=== PATIENT | male | born 1950 | race Caucasian/White ===

== ENCOUNTER 2019-06-19 08:17 | Inpatient (IN) | payer MEDICARE, MEDICAID, SELFPAY ==
[2019-06-19] VITALS (9 sets, daily range): BP systolic 96–126; BP diastolic 53–75; PULSE 82–111; RESP 17–20; TEMP 37.1–39.3; O2SAT 93–96; BMI 31.1
--- NOTE | 2019-06-19 08:21 | ED_ITS ---
Entered by Kimberly Cross, acting as scribe for Fito Lew DO HPI - Weakness General: Chief complaint: Weakness Stated complaint: neuro sx yesterday/nausea Time Seen by Provider: 06/19/19 08:22 Source: patient and family Mode of arrival: EMS Limitations: no limitations History of Present Illness: HPI Narrative: 69 yo male presents with redness and tenderness to L lower leg. pt and family stated this started today , pt has had difficulty walking. pt has had abdomen distention. pt and family denies any other symptoms at this time. MD Complaint: generalized weakness and difficulty walking (edema and redness to Left lower leg) Onset (ago): day(s) (today) Duration: progressively worsening Location: generalized Severity: moderate Relieving factors: none Exacerbating factors: movement Associated symptoms: Reports nausea, vomiting and other (abdomen pain); Denies chest pain, chills, dysuria or fever(s) Review of Systems General: Reports: 10 or more systems reviewed and unremarkable except in HPI and below Const: Denies: fever, chills, body aches, change in appetite, fatigue or malaise ENMT: Denies: throat pain, ear pain, nasal discharge or nasal congestion Card: Denies: chest pain, edema, shortness of breath on exertion or shortness of breath when lying down Resp: Denies: shortness of breath, productive cough or non-productive cough GI: Reports: abdominal pain (distention), nausea and vomiting : Denies: flank pain, painful urination, urinary frequency or urinary urgency Skin/Breast: Reports: redness (L lower leg, edema warmth) PFSH ED PFSH: Medical History (Updated 06/21/19 @ 13:37 by Fito Lew DO) Anxiety Bleeding hemorrhoid Chronic migraine with aura HTN (hypertension) Hyperlipidemia Surgical History (Updated 06/19/19 @ 12:01 by Chrissy Mccormick DO) History of appendectomy History of cholecystectomy History of tonsillectomy Family History (Updated 06/19/19 @ 12:02 by Chrissy Mccormick DO) Mother Cancer breast Father CAD (coronary artery disease) Cancer Prostate cancer Social History (Updated 06/19/19 @ 12:02 by Chrissy Mccormick DO) Smoking and tobacco status: former smoker Alcohol intake: never Substance/Drug Use: never Marital status: Physical Exam Const: COMMON NORMALS: average body habitus, oriented x3 and alert GENERAL APPEARANCE: cooperative, comfortable, well kempt and well developed NUTRITIONAL APPEARANCE: obese ORIENTATION/CONSCIOUSNESS: Yes awake, Yes oriented to person and Yes oriented to place HENMT: COMMON NORMALS: normocephalic, head/scalp atraumatic, EAC's normal, TM's normal bilaterally, external nose normal, moist oral mucous membranes and oropharynx normal HEAD & SCALP: normocephalic and atraumatic NOSE: external nose normal EXTERNAL AUDITORY CANAL: EAC's normal TYMPANIC MEMBRANE: TM's normal bilaterally MOUTH: oral and palatal mucosa normal, lip normal and tongue normal THROAT: posterior oropharynx normal and tonsils normal Eye: COMMON NORMALS: PERRL, EOMs intact bilaterally, conjunctivae normal and no scleral icterus CONJUNCTIVA: Yes conjunctivae normal PUPIL: Yes PERRL Neck/C-Spine: COMMON NORMALS: full ROM, no lymphadenopathy, supple, no meningeal signs and thyroid normal THYROID: thyroid normal and asymmetrical Lymph: LYMPHATIC: no lymphadenopathy noted Resp: COMMON NORMALS: normal respiratory effort, no retractions, no use of accessory muscles and clear to auscultation bilaterally AUSCULTATION: clear to auscultation bilaterally Cardio: COMMON NORMALS: regular rate and regular rhythm RATE: regular rate RHYTHM: regular rhythm HEART SOUNDS: no murmurs GI: COMMON NORMALS: normal to inspection, nondistended, normoactive bowel sounds, soft to palpation and no hepatosplenomegaly PALPATION: Yes soft and Yes no hepatosplenomegaly : COMMON NORMALS: Yes no CVA tenderness BLADDER/KIDNEY EXAM: Yes no CVA tenderness Back/Pelvis: COMMON NORMALS: no CVA tenderness LUMBAR SPINE/LOWER BACK: Yes normal to inspection Extremity: GENERAL: Yes edema (L leg,warm to touch) Neuro: COMMON NORMALS: oriented x3 SENSORIUM/ORIENTATION: Yes alert, Yes oriented to person and Yes oriented to place MENINGEAL SIGNS: Yes no meningeal signs Psych: APPEARANCE: Yes well kempt Skin: COMMON NORMALS: no rashes or lesions noted and skin turgor normal GENERAL SKIN EXAM: no rashes or lesions noted and turgor normal Course Vital Signs: Vital signs: Vital Signs Temperature 98.5 F 06/21/19 11:52 Pulse Rate 67 06/21/19 11:52 Respiratory Rate 18 06/21/19 11:52 Blood Pressure 109/69 06/21/19 11:52 Pulse Oximetry 95 06/21/19 11:52 MDM - Weakness Lab Data: Labs: Lab Results 06/19/19 06/19/19 06/19/19 Range/Units 09:15 09:15 09:15 WBC 15.3 H (4.0-10.0) 10^3/ uL RBC 5.13 (4.1-5.3) 10^6/u L Hgb 15.2 (11.7-16.6) g/dL Hct 46.6 (42.0-52.0) % MCV 90.8 (80-94) fL MCH 29.6 (28.0-34.0) pg MCHC 32.6 (30.0-36.0) g/dL RDW 14.6 (12.1-15.1) % Plt Count 176 (130-400) 10^3/c mm MPV 10.5 H (7.4-10.4) fL Neut % (Auto) 91.9 % Lymph % (Auto) 3.3 % [place] % (Auto) 4.1 % Eos % (Auto) 0.0 % Baso % (Auto) 0.1 % Neut # (Auto) 14.1 H (1.8-7.7) 10^3/u L Lymph # (Auto) 0.5 L (0.8-4.8) 10^3/u L [place] # (Auto) 0.6 (0.2-0.9) 10^3/u L Eos # (Auto) 0.0 (0.0-0.8) 10^3/u L Baso # (Auto) 0.0 (0.0-0.1) 10^3/u L Nucleated RBC % (a uto) 0 % Nucleated RBCs # 0.0 /100WBC Sodium 132 L (136-145) mmol/L Potassium 3.6 (3.5-5.1) mmol/L Chloride 99 (98-107) mmol/L Carbon Dioxide 22 (22-29) mmol/L Anion Gap 14.6 (5-19) BUN 19 (8-23) mg/dL Creatinine 1.2 (0.7-1.2) mg/dL GFR Calculation 60.4 L (90-130) mL/min Glucose 126 H (65-115) mg/dL Estimat Average Gl ucose 114 Hemoglobin A1c 5.6 (4.0-6.0) % Calcium 9.2 (8.5-10.5) mg/dL Total Bilirubin 0.6 (0.15-1.2) mg/dL AST 63 H (0-40) U/L ALT 88 H (0-41) U/L Alkaline Phosphata se 61 (40-130) IU/L Total Protein 6.6 (6.6-8.7) g/dL Albumin 3.4 L (3.5-5.2) g/dL Globulin 3.2 (1.3-4.6) g/dL Urine Color (Yellow) Urine Appearance (CLEAR) Urine pH (5-7) Ur Specific Gravit y (1.005-1.030) Urine Protein (Negative) Urine Glucose (UA) (Normal) Urine Ketones (Negative) Urine Occult Blood (Negative) Urine Nitrate (Negative) Urine Bilirubin (NEGATIVE) Urine Urobilinogen (Negative) mg/dL Ur Leukocyte Wilda ase (Negative) Urine RBC (0-2) /hpf Urine WBC (0-5) /hpf Ur Squamous Epith Cells (0-5) Urine Bacteria (NONE) Fine Granular Cast s /lpf Urine Mucus 06/19/19 Range/Units 10:20 WBC (4.0-10.0) 10^3/ uL RBC (4.1-5.3) 10^6/u L Hgb (11.7-16.6) g/dL Hct (42.0-52.0) % MCV (80-94) fL MCH (28.0-34.0) pg MCHC (30.0-36.0) g/dL RDW (12.1-15.1) % Plt Count (130-400) 10^3/c mm MPV (7.4-10.4) fL Neut % (Auto) % Lymph % (Auto) % [place] % (Auto) % Eos % (Auto) % Baso % (Auto) % Neut # (Auto) (1.8-7.7) 10^3/u L Lymph # (Auto) (0.8-4.8) 10^3/u L [place] # (Auto) (0.2-0.9) 10^3/u L Eos # (Auto) (0.0-0.8) 10^3/u L Baso # (Auto) (0.0-0.1) 10^3/u L Nucleated RBC % (a uto) % Nucleated RBCs # /100WBC Sodium (136-145) mmol/L Potassium (3.5-5.1) mmol/L Chloride (98-107) mmol/L Carbon Dioxide (22-29) mmol/L Anion Gap (5-19) BUN (8-23) mg/dL Creatinine (0.7-1.2) mg/dL GFR Calculation (90-130) mL/min Glucose (65-115) mg/dL Estimat Average Gl ucose Hemoglobin A1c (4.0-6.0) % Calcium (8.5-10.5) mg/dL Total Bilirubin (0.15-1.2) mg/dL AST (0-40) U/L ALT (0-41) U/L Alkaline Phosphata se (40-130) IU/L Total Protein (6.6-8.7) g/dL Albumin (3.5-5.2) g/dL Globulin (1.3-4.6) g/dL Urine Color Yellow (Yellow) Urine Appearance Clear (CLEAR) Urine pH 5 (5-7) Ur Specific Gravit y 1.020 (1.005-1.030) Urine Protein 1+ H (Negative) Urine Glucose (UA) Norm (Normal) Urine Ketones 1+ H (Negative) Urine Occult Blood Neg (Negative) Urine Nitrate Negative (Negative) Urine Bilirubin 1+ H (NEGATIVE) Urine Urobilinogen Norm (Negative) mg/dL Ur Leukocyte Wilda ase Negative (Negative) Urine RBC None (0-2) /hpf Urine WBC None (0-5) /hpf Ur Squamous Epith Cells Rare (0-5) Urine Bacteria Trace (NONE) Fine Granular Cast s Rare /lpf Urine Mucus 2+ Discharge Plan Discharge Patient Disposition: Admitted As Inpatient Admit Provider: Chrissy Mccormick Clinical Impression: Cellulitis, HTN (hypertension) Condition: Stable Discharge Date/Time: 06/19/19 13:00 Coding Level of Care Code ED [place] Operator for Chg Fwd Exam Comprehensive The documentation recorded by the scribTay nichols Bridget Annette, accurately reflects the service I personally performed and the decisions made by me, Fito Lew, DO Jun 19, 2019 08:17
--- NOTE | 2019-06-19 08:57 | ECG_ITS ---
Measurements Intervals [place] Rate: 93 P: 20 MO: 182 QRS: -19 QRSD: 103 T: 56 QT: 320 QTc: 400 SINUS RHYTHM POSSIBLE LEFT ATRIAL ENLARGEMENT [-0.1mV P WAVE IN V1/V2] Compared to ECG 12/12/2016 13:31:02 Sinus bradycardia no longer present Intraventricular conduction delay no longer present Electronically Signed On 06-19-2019 13:17:13 MILK TREATER by Lissette Cormier M.D. [email or web address]
--- NOTE | 2019-06-19 08:57 | USCV_ITS ---
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
[2019-06-19 09:27] LABS: Basophils % 0.1 %; Hematocrit 46.6 % (42.0-52.0); Hemoglobin 15.2 g/dL (11.7-16.6); Lymphocytes # 0.5 10^3/uL (0.8-4.8); Lymphocytes % 3.3 %; Mean Corpuscular HGB Conc 32.6 g/dL (30.0-36.0); Mean Corpuscular Hemoglobin 29.6 pg (28.0-34.0); Mean Corpuscular Volume 90.8 fL (80-94); Mean Platelet Volume 10.5 fL (7.4-10.4); Monocytes # 0.6 10^3/uL (0.2-0.9); Monocytes % 4.1 %; Neutrophils # 14.1 10^3/uL (1.8-7.7); Neutrophils % 91.9 %; Nucleated Red Blood Cells % 0 %; Platelet Count 176 10^3/cmm (130-400); Red Blood Count 5.13 10^6/uL (4.1-5.3); Red Cell Distribution Width 14.6 % (12.1-15.1); White Blood Count 15.3 10^3/uL (4.0-10.0)
[2019-06-19 09:41] LABS: Alanine Aminotransferase 88 U/L (0-41); Albumin Level 3.4 g/dL (3.5-5.2); Alkaline Phosphatase 61 IU/L (40-130); Anion Gap 14.6 (5-19); Aspartate Amino Transferase 63 U/L (0-40); Blood Urea Nitrogen 19 mg/dL (8-23); Calcium 9.2 mg/dL (8.5-10.5); Carbon Dioxide 22 mmol/L (22-29); Chloride 99 mmol/L (98-107); Creatinine Clr Calc Pharmacy 74.5972; Globulin 3.2 g/dL (1.3-4.6); Glomerular Filtration Rate 60.4 mL/min (90-130); Glucose 126 mg/dL (65-115); Potassium 3.6 mmol/L (3.5-5.1); Sodium 132 mmol/L (136-145); Total Bilirubin 0.6 mg/dL (0.15-1.2); Total Protein 6.6 g/dL (6.6-8.7)
[2019-06-19] MEDS: cefTRIAXone 1,000 MG in sodium chloride 0.9% (plus) 50 ML 100 MG IV (10:15)
[2019-06-19 10:55] LABS: Add Urine Microscopic? YES; Bacteria Urine TRACE; Bilirubin Urine 1+ (NEGATIVE); Blood Urine Neg (Negative); Glucose Urine UA Norm (Normal); Ketones Urine 1+ (Negative); Leukocyte Esterase Urine Negative (Negative); Nitrate Urine Negative (Negative); Protein Urine 1+ (Negative); Squamous Epithelial Cell Urine RARE (0-5); Urine Appearance Clear (CLEAR); Urine Color Yellow (Yellow); Urobilinogen Urine Norm (Negative); pH Urine 5 (5-7)
[2019-06-19 10:56] LABS: Add Urine Culture? No; Fine Granular Casts Urine RARE /lpf; Mucus Urine 2+
[2019-06-19] MEDS: vancomycin 1,000 MG in sodium chloride 0.9% 250 ML 250 MG IV (11:05)
--- NOTE | 2019-06-19 11:34 | USCV_ITS ---
Franko Posadas Age: 69 Gender: M : 1950 Exam Date: 06/19/2019 12:14 Ordering Phys: Chrissy Mccormick DO Technologist: SUNNY PHAM Exam Location: [facility] [place] Indication: SWELLING HISTORY: Lower extremity swelling. PROCEDURES: Venous duplex imaging was performed in only the left lower extremity. The following venous structures were evaluated: common femoral vein, profunda vein, proximal portion of the greater saphenous vein, superficial femoral vein, and the popliteal vein. In addition, the posterior tibial and peroneal trunk were evaluated. Serial compression, augmentation maneuvers, and spectral Doppler flow evaluation were performed. FINDINGS: Normal 2-D Doppler and augmentation and compressibility throughout the lower extremity venous structures. Additional imaging through the proximal calf veins also reveals no thrombus. Limited evaluation of the greater saphenous vein is patent with no thrombus.. CONCLUSIONS No evidence of left lower extremity DVT. Stan Gutierrez MD (Electronically Signed) Final Date: 19 June 2019 15:00 S
--- NOTE | 2019-06-19 11:35 | PM.HP ---
Providers/Chief Complaint Admitting Physician: Chrissy Mccormick DO Primary Care Provider: Christina Jackson DO Chief Complaint: LE CELLULITIS History of Present Illness Franko Posadas is a 69 year old male that presented to the emergency department today for generalized weakness and chills. He stated that he began having symptoms yesterday at 11:30 in the morning. He stated that he started having nausea vomiting as well as chills. reported that he became generally weak and did not eat much yesterday. She stated that he began having some redness in the left lower extremity that is continued to spread up his leg. This morning patient tried to get out of bed and immediately slid to the floor and reported decreased strength in the lower extremities. reported that he did not eat anything for supper last night and has had decreased liquid intake. Patient reports cough that is been progressive, worse at night. Reports chills all last evening, uncertain of temperature at home due to not having a thermometer available. Denies any sick contacts, no recent medication changes. Patient reported he did have a flu vaccine this year along with pneumonia vaccine. Patient was seen and evaluated in the emergency department and noted to have concern for left lower extremity cellulitis, given Rocephin and vancomycin. Review of Systems Const: Reports: chills; Denies: fever Eyes: Denies: change in vision ENMT: Denies: nasal congestion Card: Denies: chest pain, palpitations or edema Resp: Reports: productive cough; Denies: shortness of breath or coughing up blood GI: Reports: nausea and vomiting; Denies: abdominal pain, diarrhea, constipation, blood in stool or black tarry stool : Denies: painful urination or blood in urine Musc: Reports: extremity pain; Denies: muscle cramps Skin/Breast: Reports: rash; Denies: new lesion Neuro: Denies: headache or dizziness Psych: Denies: anxiety or depression Endo: Denies: excessive urination or hot flashes Efraín/Lymph: Denies: easy bruising or easy bleeding Medications/Allergies Home Medications Medication Instructions Recorded Confirmed Last Taken Type aspirin 325 mg PO DAILY 06/19/19 06/19/19 06/19/19 History cholecalciferol (vitamin D3) 1,000 unit PO DAILY 06/19/19 06/19/19 06/19/19 History [Vitamin D3] diazepam 5 mg PO Q12H 06/19/19 06/19/19 06/19/19 History esomeprazole magnesium [Nexium] 40 mg PO DAILY 06/19/19 06/19/19 06/19/19 History furosemide [Lasix] 30 mg PO DAILY 06/19/19 06/19/19 06/19/19 History gabapentin 300 mg PO BEDTIME 06/19/19 06/19/19 06/18/19 History lisinopril 10 mg PO DAILY 06/19/19 06/19/19 06/19/19 History loratadine 10 mg PO DAILY 06/19/19 06/19/19 Unknown History mupirocin 1 applic TOPICAL DIRECTED 06/19/19 06/19/19 Unknown History niacin 1,000 mg PO BEDTIME 06/19/19 06/19/19 06/18/19 History nitroglycerin [Nitrostat] 0.4 mg SUBLINGUAL Q5M PRN 06/19/19 06/19/19 Unknown History Allergies Allergy/AdvReac Type Severity Reaction Status Date / Time No Known Allergies Allergy Verified 06/19/19 08:16 PFSH Acute PFSH: Medical History (Updated 06/19/19 @ 12:01 by Chrissy Mccormick DO) Anxiety Bleeding hemorrhoid Chronic migraine with aura HTN (hypertension) Hyperlipidemia Surgical History (Updated 06/19/19 @ 12:01 by Chrissy Mccormick DO) History of appendectomy History of cholecystectomy History of tonsillectomy Family History (Updated 06/19/19 @ 12:02 by Chrissy Mccormick DO) Mother Cancer breast Father CAD (coronary artery disease) Cancer Prostate cancer Social History (Updated 06/19/19 @ 12:02 by Chrissy Mccormick DO) Smoking and tobacco status: former smoker Alcohol intake: never Substance/Drug Use: never Marital status: Vitals/I&O/Wt Last Vital Signs Temp 98.7 F 06/19/19 08:18 Pulse 97 06/19/19 10:45 Resp 17 06/19/19 10:45 BP 100/62 06/19/19 10:45 Pulse Ox 96 06/19/19 10:45 Weight last 48 hrs Weight 104.326 kg Physical Exam Const: COMMON NORMALS: oriented x3 and alert GENERAL APPEARANCE: cooperative ORIENTATION/CONSCIOUSNESS: Yes awake, Yes oriented to person, Yes oriented to place and Yes oriented to time HENMT: COMMON NORMALS: normocephalic and head/scalp atraumatic HEAD & SCALP: normocephalic and atraumatic Eye: COMMON NORMALS: PERRL PUPIL: Yes PERRL Neck/C-Spine: COMMON NORMALS: supple GENERAL: Yes normal visual inspection Resp: COMMON NORMALS: normal respiratory effort and clear to auscultation bilaterally EFFORT & INSPECTION: Yes able to speak in complete sentences AUSCULTATION: clear to auscultation bilaterally, no rhonchi and no wheezes Cardio: COMMON NORMALS: regular rhythm and no murmurs RATE: tachycardic RHYTHM: regular rhythm GI: COMMON NORMALS: soft to palpation and non-tender INSPECTION: No abdominal distension AUSCULTATION: Yes normoactive bowel sounds PALPATION: Yes soft Extremity: NARRATIVE EXTREMITY EXAM: Left lower extremity with nonpitting edema and erythema to the knee Neuro: COMMON NORMALS: oriented x3 and CN's II-XII intact bilaterally SENSORIUM/ORIENTATION: Yes alert, Yes oriented to person, Yes oriented to place and Yes oriented to time SPEECH: speech normal OTHER: Patient has slightly decreased strength in the left lower extremity but able to plantarflex and dorsiflex against resistance, similar strength to the right lower extremity Psych: COMMON NORMALS: mental status grossly normal and cooperative Skin: OTHER: Erythema in the left lower extremity into the forefoot and extending up to the knee, no abrasions or lesions Data : 06/19/19 09:15 06/19/19 09:15 Micro: Microbiology 06/19/19 09:10 Blood Culture - Preliminary Blood SPECIMEN COLLECTED 06/19/19 09:15 Blood Culture - Preliminary Blood SPECIMEN COLLECTED A&P Assessment and plan (1) Cellulitis: Left lower extremity cellulitis Lower extremity venous duplex and arterial ultrasound ordered, will follow up with result Sudden onset of erythema yesterday, 06/18/2019 Given vancomycin in the ED, has not been on any outpatient antibiotics, will continue on clindamycin White blood cell count of 15,000, will recheck in the morning Status: Acute Code(s): L03.90 - Cellulitis, unspecified (2) HTN (hypertension): Continue home lisinopril, hold home Lasix at this time due to decreased oral intake and concern for mild dehydration Status: Acute Code(s): I10 - Essential (primary) hypertension Additional A&P Information Cough with reported chills, unknown if patient has had fever: Leukocytosis of 15,000, due to his vague GI symptoms but concern for respiratory symptoms will further evaluate with influenza swab. And further evaluate with chest x-ray Leukocytosis: Believed to be secondary to cellulitis, however flu swab also pending as reported Mild dehydration: Continue with gentle IV fluids, gradually increase diet as tolerated Nausea and vomiting: Denies any abdominal pain, reported regular bowel movement yesterday, no concern for small bowel obstruction at this time with normal bowel sounds. Consider further imaging if indicated, however will hold off at this time. We will continue with gentle IV fluids and clear liquid diet and increase as tolerated. Hyperglycemia without prior history of diabetes: We will check A1c Elevated transaminases: Likely secondary to dehydration we will continue to monitor closely with recheck in the morning Hyperlipidemia: On chronic niacin, holding at this time History of migraine with aura: Some discussion in the past if patient had recurrent TIAs or recurrent migraines, previously followed by neurology now followed by primary care provider DVT prophylaxis: Lovenox Diet: Clear liquid, increase as tolerated CODE STATUS: Full code Attestations Medical Necessity Statement*: Patient requires hospitalization due to concern for lower extremity cellulitis and dehydration. Expected stay greater than 2 midnights Coding Level of Care Code Acute Tile Layer Supervisor for Chg Fwd Exam Comprehensive Diagnoses Cellulitis L03.90 HTN (hypertension) I10
[2019-06-19 12:17] LABS: Influenza A by IFA Negative (Negative); Influenza B by IFA Negative (Negative)
--- NOTE | 2019-06-19 13:51 | XR_ITS ---
WS: [id number] XR chest 1V portable [id number] REASON FOR EXAM: Cough, fever, leukocytosis FINDINGS: Comparisons were made to previous exam of December 12, 2016. The heart is borderline enlarged. The lung gardner are well aerated. No pneumonia, pleural effusion, pulmonary edema, or mass effect. There are scattered small calcified granulomas both lung gardner. The hilum and apices are normal. XR/XR chest 1V portable [id number] IMPRESSION: Borderline cardiomegaly No active pneumonias or infiltrates.
[2019-06-19] MEDS: lactated ringers 1,000 ML 50 ML IV (14:58)
[2019-06-19] MEDS: enoxaparin 40 mg/0.4 mL Syringe SUBCUT (14:58)
[2019-06-19 15:01] LABS: Estmated Average Glucose 114; Hemoglobin A1C 5.6 % (4.0-6.0)
[2019-06-19] MEDS: acetaminophen 325 mg Tablet 650 MG PO ×2 (15:23→22:08)
[2019-06-19] MEDS: clindamycin 600 MG/50 ML PREMIX 100 MG IV ×2 (15:31→22:09)
[2019-06-19] MEDS: gabapentin 300 mg Capsule PO (20:56)
[2019-06-20] VITALS (11 sets, daily range): BP systolic 89–118; BP diastolic 47–70; PULSE 66–93; RESP 18–22; TEMP 37–39.4; O2SAT 91–97
[2019-06-20] MEDS: clindamycin 600 MG/50 ML PREMIX 100 MG IV (05:43)
[2019-06-20 05:58] LABS: Basophils % 0.2 %; Eosinophils % 0.1 %; Hemoglobin 13.7 g/dL (11.7-16.6); Lymphocytes # 0.8 10^3/uL (0.8-4.8); Lymphocytes % 5.8 %; Mean Corpuscular HGB Conc 32.6 g/dL (30.0-36.0); Mean Corpuscular Hemoglobin 28.6 pg (28.0-34.0); Mean Corpuscular Volume 87.7 fL (80-94); Mean Platelet Volume 10.5 fL (7.4-10.4); Monocytes # 0.9 10^3/uL (0.2-0.9); Monocytes % 7.2 %; Neutrophils # 11.2 10^3/uL (1.8-7.7); Neutrophils % 86.2 %; Nucleated Red Blood Cells % 0 %; Platelet Count 158 10^3/cmm (130-400); Red Blood Count 4.79 10^6/uL (4.1-5.3); Red Cell Distribution Width 14.9 % (12.1-15.1)
[2019-06-20 06:18] LABS: Alanine Aminotransferase 62 U/L (0-41); Alkaline Phosphatase 56 IU/L (40-130); Anion Gap 17.8 (5-19); Aspartate Amino Transferase 42 U/L (0-40); Blood Urea Nitrogen 17 mg/dL (8-23); Calcium 8.8 mg/dL (8.5-10.5); Carbon Dioxide 23 mmol/L (22-29); Chloride 101 mmol/L (98-107); Globulin 2.7 g/dL (1.3-4.6); Glomerular Filtration Rate 74.5 mL/min (90-130); Glucose 113 mg/dL (65-115); Potassium 3.8 mmol/L (3.5-5.1); Sodium 138 mmol/L (136-145); Total Bilirubin 0.6 mg/dL (0.15-1.2); Total Protein 5.7 g/dL (6.6-8.7)
[2019-06-20] MEDS: pantoprazole DR 40 mg Tablet PO (08:55)
[2019-06-20] MEDS: acetaminophen 325 mg Tablet 650 MG PO ×2 (08:55→21:21)
[2019-06-20] MEDS: aspirin 325 mg Tablet PO (08:55)
--- NOTE | 2019-06-20 09:12 | CT_ITS ---
WS: [id number] Contrast CT left lower leg TECHNIQUE: Contrast CT left lower leg with coronal and sagittal reformatted images. CLINICAL INFORMATION: sepsis, cellulitis, COMPARISON: None. DLP: 348.[address] scans at [facility] use at least one of these dose optimization techniques: automat ed exposure control; mA and/or kV adjustment per patient size (includes targeted exams where dose is matched to clinical indication); or iterative reconstruction. FINDINGS: Mild soft tissue edema involving the left lower leg and calf. Moderate soft tissue edema at the level of the ankle. This is worse involving the dorsal lower leg and ankle. Recommend correlation for cell ulitis. No evidence of drainable abscess or fluid collection. Normal anatomic alignment. No acute fra ctures. No evidence of osteomyelitis. Vascular calcification. CT/CT lower leg LT w con [id number] IMPRESSION: 1. Diffuse lower leg cellulitis. No evidence of drainable abscess or fluid col lection. 2. No evidence of osteomyelitis.
--- NOTE | 2019-06-20 09:12 | PM.PN ---
Subjective Subjective: Interval history: Patient sleeping in bed at time of exam this morning. He reported no chest pain or abdominal pain, no shortness of breath. Patient denied any cough. Reported continue fever and chills. Patient denied any lower extremity pain Discussed care with nurse, patient continues to have fever this morning Vitals/I&O/Wt Last Vital Signs Temp 103.0 F H 06/20/19 08:48 Pulse 93 06/20/19 08:48 Resp 22 H 06/20/19 08:48 BP 99/61 06/20/19 08:48 Pulse Ox 93 06/20/19 08:48 06/19/19 06/20/19 06/20/19 22:59 06:59 14:59 Intake Total 680 / 680 Output Total 200 / 200 Balance 680 / 680 -200 / 480 Weight last 48 hrs Weight 104.128 kg Weight 104.326 kg Physical Exam Const: COMMON NORMALS: oriented x3 and alert GENERAL APPEARANCE: cooperative ORIENTATION/CONSCIOUSNESS: Yes awake, Yes oriented to person, Yes oriented to place and Yes oriented to time HENMT: COMMON NORMALS: normocephalic and head/scalp atraumatic HEAD & SCALP: normocephalic and atraumatic Eye: COMMON NORMALS: PERRL PUPIL: Yes PERRL Neck/C-Spine: COMMON NORMALS: supple GENERAL: Yes normal visual inspection Resp: COMMON NORMALS: normal respiratory effort and clear to auscultation bilaterally EFFORT & INSPECTION: Yes able to speak in complete sentences AUSCULTATION: clear to auscultation bilaterally, no rhonchi and no wheezes Cardio: COMMON NORMALS: regular rhythm and no murmurs RHYTHM: regular rhythm GI: COMMON NORMALS: soft to palpation and non-tender INSPECTION: No abdominal distension AUSCULTATION: Yes normoactive bowel sounds PALPATION: Yes soft Extremity: NARRATIVE EXTREMITY EXAM: Left lower extremity erythema somewhat improved in the left foot with continued erythema in the ankle extending to the knee anteriorly and posteriorly to the thigh Neuro: COMMON NORMALS: oriented x3 and CN's II-XII intact bilaterally SENSORIUM/ORIENTATION: Yes alert, Yes oriented to person, Yes oriented to place and Yes oriented to time SPEECH: speech normal OTHER: Patient able to move the left lower extremity without any decreased strength today Psych: COMMON NORMALS: mental status grossly normal and cooperative Skin: OTHER: Erythema as above Data : 06/20/19 05:29 06/20/19 05:29 Micro: Microbiology 06/19/19 09:10 Blood Culture - Preliminary Blood SPECIMEN COLLECTED 06/19/19 09:15 Blood Culture - Preliminary Blood SPECIMEN COLLECTED A&P Assessment and plan (1) Cellulitis: Left lower extremity cellulitis Due to continued extension of erythema will further evaluated with CT scan of the left lower extremity today Patient continues to have fever, temperature of 103 this morning Broaden antibiotic coverage to vancomycin and Zosyn today due to continued fever Status: Acute Code(s): L03.90 - Cellulitis, unspecified (2) HTN (hypertension): Continue lisinopril and continue to hold home Lasix Status: Acute Code(s): I10 - Essential (primary) hypertension Additional A&P Information Sepsis secondary to lower extremity cellulitis: Further imaging as noted above due to patient continuing to have a fever of 103 degrees and leukocytosis. Continue on broad-spectrum antibiotics as noted above Cough with reported chills: Flu negative and chest x-ray shows no infiltrate, oxygen per protocol Leukocytosis: Secondary to cellulitis Mild dehydration: Continue IV fluids, discontinue Lasix at this time Nausea and vomiting: Resolved Hyperglycemia without prior history of diabetes: A1c within normal limits Elevated transaminases: Improving, will continue to monitor closely Hyperlipidemia: On chronic niacin, holding at this time History of migraine with aura: Some discussion in the past if patient had recurrent TIAs or recurrent migraines, previously followed by neurology now followed by primary care provider DVT prophylaxis: Lovenox Diet: Clear liquid, increase increase to full liquid CODE STATUS: Full code Attestations Medical Necessity Statement*: Patient requires continued hospitalization due to sepsis with fever, leukocytosis and lower extremity cellulitis. Further evaluation with CT scan of the left lower extremity due to extension into the upper thigh and fever of 103 ?F. 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
[2019-06-20] MEDS: iohexol 300 mg/mL 100 mL Btl IV (10:18)
[2019-06-20] MEDS: sodium chloride 0.9% 500 ML IV (11:37)
[2019-06-20] MEDS: enoxaparin 40 mg/0.4 mL Syringe SUBCUT (14:47)
[2019-06-20] MEDS: piperacillin-tazobactam 3.375 GM in sodium chloride 0.9% (plus) 50 ML IV ×2 (14:49→21:25)
[2019-06-20] MEDS: diazePAM 5 mg Tablet PO (21:21)
[2019-06-20] MEDS: gabapentin 300 mg Capsule PO (21:21)
[2019-06-21] VITALS (9 sets, daily range): BP systolic 109–135; BP diastolic 68–79; PULSE 67–86; RESP 16–18; TEMP 36.8–37.6; O2SAT 93–96
[2019-06-21] MEDS: HYDROcodone-acetaminophen 5-325 mg Tablet 1 TAB PO (06:02)
[2019-06-21] MEDS: piperacillin-tazobactam 3.375 GM in sodium chloride 0.9% (plus) 50 ML IV (06:03)
[2019-06-21 06:07] LABS: Basophils % 0.2 %; Eosinophils # 0.2 10^3/uL (0.0-0.8); Eosinophils % 2.8 %; Hematocrit 42.4 % (42.0-52.0); Hemoglobin 13.8 g/dL (11.7-16.6); Lymphocytes # 0.7 10^3/uL (0.8-4.8); Lymphocytes % 8.5 %; Mean Corpuscular HGB Conc 32.5 g/dL (30.0-36.0); Mean Corpuscular Hemoglobin 28.6 pg (28.0-34.0); Mean Platelet Volume 10.9 fL (7.4-10.4); Monocytes # 0.7 10^3/uL (0.2-0.9); Monocytes % 8.4 %; Neutrophils # 6.8 10^3/uL (1.8-7.7); Neutrophils % 79.6 %; Nucleated Red Blood Cells % 0 %; Platelet Count 151 10^3/cmm (130-400); Red Blood Count 4.82 10^6/uL (4.1-5.3); White Blood Count 8.5 10^3/uL (4.0-10.0)
[2019-06-21 06:30] LABS: Alanine Aminotransferase 42 U/L (0-41); Albumin Level 2.9 g/dL (3.5-5.2); Alkaline Phosphatase 57 IU/L (40-130); Anion Gap 12.8 (5-19); Aspartate Amino Transferase 24 U/L (0-40); Blood Urea Nitrogen 15 mg/dL (8-23); Calcium 8.9 mg/dL (8.5-10.5); Carbon Dioxide 25 mmol/L (22-29); Chloride 103 mmol/L (98-107); Globulin 3.4 g/dL (1.3-4.6); Glomerular Filtration Rate 96.4 mL/min (90-130); Glucose 106 mg/dL (65-115); Potassium 3.8 mmol/L (3.5-5.1); Sodium 137 mmol/L (136-145); Total Bilirubin 0.4 mg/dL (0.15-1.2); Total Protein 6.3 g/dL (6.6-8.7)
[2019-06-21] MEDS: aspirin 325 mg Tablet PO (09:15)
[2019-06-21] MEDS: pantoprazole DR 40 mg Tablet PO (09:15)
[2019-06-21] MEDS: diazePAM 5 mg Tablet PO (09:15)
--- NOTE | 2019-06-21 11:46 | PC.OT ---
PATIENT HAS MET ALL GOALS AND IS SAFE TO DISCHARGE HOME WITH . PATIENT DEMONSTRATES NO PERFORMANCE DEFICITS DURING ADLS AND IS DISCHARGED FROM OT SERVICES.
[2019-06-21] MEDS: clindamycin 150 mg Capsule 300 MG PO (15:00)
[2019-06-21] MEDS: enoxaparin 40 mg/0.4 mL Syringe SUBCUT (15:01)
--- NOTE | 2019-06-21 17:19 | P.DS_ITS ---
Discharge Providers Date of Admission: 06/19/19 11:34 Date of Discharge: June 21, 2019 Attending Provider at Admission: Chrissy Mccormick DO Attending Provider at Discharge: Chrissy Mccormick DO Primary Care Provider: Christina Jackson DO Diagnoses at Discharge Discharge Diagnosis (1) Cellulitis: Status: Acute Problem details: Left lower extremity cellulitis, improved with IV antibiotics, discharged home with clindamycin (2) HTN (hypertension): Status: Acute Reason for Visit Reason for Visit: Reason For Visit: LE CELLULITIS Hospital Course Hospital Course: Patient was seen and evaluated in the emergency department noted to have concern for left lower extremity cellulitis with fever and leukocytosis. He was admitted and given IV antibiotics. His symptoms gradually improved and fever continued to improve. On date of discharge he had been afebrile for 24 hours and reported that he was feeling better. He did require some oxygen initially during his hospital stay and he was then weaned to room air without difficulty. On date of discharge she denied any chest pain, no shortness of breath, no abdominal pain. Discussed with patient plan for discharge to home with close follow-up with his primary care provider and he verbalized understanding and agreed with plan Physical Exam Const: COMMON NORMALS: oriented x3 and alert GENERAL APPEARANCE: cooperative ORIENTATION/CONSCIOUSNESS: Yes awake, Yes oriented to person, Yes oriented to place and Yes oriented to time HENMT: COMMON NORMALS: normocephalic and head/scalp atraumatic HEAD & SCALP: normocephalic and atraumatic Eye: COMMON NORMALS: PERRL PUPIL: Yes PERRL Neck/C-Spine: COMMON NORMALS: supple GENERAL: Yes normal visual inspection Resp: COMMON NORMALS: normal respiratory effort and clear to auscultation bilaterally EFFORT & INSPECTION: Yes able to speak in complete sentences AUSCULTATION: clear to auscultation bilaterally, no rhonchi and no wheezes Cardio: COMMON NORMALS: regular rhythm and no murmurs RATE: tachycardic RHYTHM: regular rhythm GI: COMMON NORMALS: soft to palpation and non-tender INSPECTION: No abdominal distension AUSCULTATION: Yes normoactive bowel sounds PALPATION: Yes soft Extremity: NARRATIVE EXTREMITY EXAM: Left lower extremity erythema improved in the left foot with continued erythema in the ankle extending to the knee anteriorly and posteriorly to the thigh, receding from margins Neuro: COMMON NORMALS: oriented x3 and CN's II-XII intact bilaterally SENSORIUM/ORIENTATION: Yes alert, Yes oriented to person, Yes oriented to place and Yes oriented to time SPEECH: speech normal OTHER: Patient able to move the left lower extremity without any decreased strength today Psych: COMMON NORMALS: mental status grossly normal and cooperative Skin: OTHER: Erythema as above Discharge Data Data Completed and Pending: Completed Studies During Hospitalization Category Date Time Status CT lower leg LT w con [id number] Routine Cat Scan 06/20/19 09:12 Completed XR chest 1V kj ble [id number] Routine Exams 06/19/19 13:51 [place] [id number] Urge nt Ultrasound 06/19/19 08:57 [place] [id number] Urgent Ultrasound 06/19/19 11:34 Completed Pending at discharge Category Date Time Status Blood Culture Sta t Lab 06/19/19 09:10 Results Vancomycin Trough Timed Lab 06/21/19 21:30 Ordered Labs from last 24 hours 06/21/19 06/21/19 05:17 05:17 WBC 8.5 RBC 4.82 Hgb 13.8 Hct 42.4 MCV 88.0 MCH 28.6 MCHC 32.5 RDW 15.0 Plt Count 151 MPV 10.9 H Neut % (Auto) 79.6 Lymph % (Auto) 8.5 Navarro % (Auto) 8.4 Eos % (Auto) 2.8 Baso % (Auto) 0.2 Neut # (Auto) 6.8 Lymph # (Auto) 0.7 L Navarro # (Auto) 0.7 Eos # (Auto) 0.2 Baso # (Auto) 0.0 Nucleated RBC % (a uto) 0 Nucleated RBCs # 0.0 Sodium 137 Potassium 3.8 Chloride 103 Carbon Dioxide 25 Anion Gap 12.8 BUN 15 Creatinine 0.8 GFR Calculation 96.4 Glucose 106 Calcium 8.9 Total Bilirubin 0.4 AST 24 ALT 42 H Alkaline Phosphata se 57 Total Protein 6.3 L Albumin 2.9 L Globulin 3.4 Vitals: Last Vital Signs Temp 98.2 F 06/21/19 17:00 Pulse 72 06/21/19 17:00 Resp 18 06/21/19 17:00 BP 121/68 06/21/19 17:00 Pulse Ox 95 06/21/19 17:00 Discharge Plan Discharge Patient Disposition: Home, Self-Care Condition: Stable Prescriptions: New clindamycin HCl 150 mg Capsule 300 mg PO TID PRN (Reason: Cellulitis) 11 Days Qty: 33 RF: 0 Continued aspirin 325 mg Tablet 325 mg PO DAILY RF: 0 esomeprazole magnesium [Nexium] 40 mg Capsule,Delayed Release(Dr/Ec) 40 mg PO DAILY RF: 0 lisinopril 10 mg Tablet 10 mg PO DAILY RF: 0 nitroglycerin [Nitrostat] 0.4 mg Tablet, Sublingual 0.4 mg SUBLINGUAL Q5M PRN (Reason: Chest Pain) RF: 0 gabapentin 300 mg Capsule 300 mg PO BEDTIME RF: 0 mupirocin 2 % Ointment 1 applic TOPICAL DIRECTED RF: 0 furosemide [Lasix] 20 mg Tablet 30 mg PO DAILY RF: 0 diazepam 5 mg Tablet 5 mg PO Q12H RF: 0 cholecalciferol (vitamin D3) [Vitamin D3] 25 mcg (1,000 unit) Capsule 1,000 unit PO DAILY RF: 0 niacin 500 mg Tablet Extended Release 1,000 mg PO BEDTIME RF: 0 Discontinued loratadine 10 mg Tablet 10 mg PO DAILY RF: 0 Discharge Orders: Discharge Order (Routine); Ordered 06/21/19 Ordered By: Chrissy Mccormick Referrals: Christina Jackson DO [Primary Care Provider] - 1-3 days Discharge Diet: Advance as tolerated Discharge Activity: Increase activity as tolerated Activity Restrictions/Additional Instructions: Started on clindamycin, antibiotic for left lower extremity cellulitis. Continue as prescribed for an additional 11 days. Follow-up with your primary care provider early next week, if for any worsening redness or swelling please present to the ER for further evaluation and treatment. You have been fever free for over 24 hours, for any worsening fever or chills please call your physician or present to the ER. 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
--- NOTE | 2019-06-21 18:28 | PC.NURSE ---
Discharge instructions given per physician's orders. Patient verbalized understanding and did not have any further questions.
== END 2019-06-21 18:25 | disposition home or self-care (01) | DRG 872 ==
LOC: ER 10:51 → MEDSURG 12:34
PROVIDERS: Admitting Provider Family Medicine; Emergency Provider Family Medicine; Family Provider Family Medicine; PCP Family Medicine; Visit Provider Family Medicine
DX: A41.9 Sepsis, unspecified organism (principal); L03.116 Cellulitis of left lower limb; I10 Essential (primary) hypertension; E78.5 Hyperlipidemia, unspecified; E86.0 Dehydration; R05 Cough; R73.9 Hyperglycemia, unspecified; Z79.899 Other long term (current) drug therapy; Z79.82 Long term (current) use of aspirin; Z87.891 Personal history of nicotine dependence
CPT/HCPCS: 12345; 36415; 71045; 73701; 80053; 81001; 83036; 85025; 87040; 87804; 93005; 93926; 93971; 96372; 97110; 97161; 97167; 97535; 99283; A9270; J0696; J1650; J2543; J3370; J3490; J7040; J7050; Q9967

== ENCOUNTER 2019-12-09 10:09 | Emergency (ER) | payer MEDICARE, MEDICAID, SELFPAY ==
[2019-12-09 10:20] VITALS: BP 128/71; PULSE 72; RESP 18; TEMP 37.6; O2SAT 96; BMI 29.1
--- NOTE | 2019-12-09 10:30 | W.ED.SKABFB ---
HPI - Skin/Abscess/Foreign Bdy General: Chief complaint: Skin/Abscess/Foreign Body Stated complaint: cellulitis Time Seen by Provider: 12/09/19 10:30 History of Present Illness: HPI narrative: Patient is a 69-year-old male who comes to the ED with redness and swelling of his right lower extremity. He says it is also painful to the touch. Patient noticed redness on his right lower leg approximately 2 to 3 days ago. Yesterday is when he noticed his right leg started swelling and getting painful. Denies a history of blood clots, trauma or injury to cause symptoms. Associated symptoms: Deny chills, fever(s), nausea or vomiting Review of Systems Const: Denies: fever(s), chills or fatigue Eyes: Denies: change in vision or eye discomfort ENMT: Denies: throat pain, odynophagia, nasal discharge or nasal congestion Card: Denies: chest pain, palpitations, edema, swelling of feet/ankles, dyspnea on exertion or orthopnea Resp: Denies: dyspnea, productive cough or non-productive cough GI: Denies: abdominal pain, nausea, vomiting, diarrhea, constipation or hematochezia : Denies: flank pain, difficulty urinating, dysuria or hematuria Musc: Denies: neck pain, back pain or extremity swelling Skin/Breast: Reports: rash (R lower extremity) and erythema; Denies: new lesions Neuro: Denies: headache(s), numbness in extremities or weakness in extremities PFS ED PFSH: Medical History Anxiety Bleeding hemorrhoid Chronic migraine with aura HTN (hypertension) Hyperlipidemia Surgical History History of appendectomy History of cholecystectomy History of tonsillectomy Family History Mother Cancer breast Father CAD (coronary artery disease) Cancer Prostate cancer Social History Smoking and tobacco status: former smoker Alcohol intake: never Marital status: Physical Exam Const: COMMON NORMALS: no acute distress, patient oriented x3 and alert GENERAL APPEARANCE: cooperative and comfortable HENMT: COMMON NORMALS: normocephalic HEAD & SCALP: normocephalic MOUTH: Normal oral and palatal mucosa present THROAT: posterior oropharynx normal and uvula midline Neck/C-Spine: COMMON NORMALS: supple GENERAL: Yes normal visual inspection Resp: COMMON NORMALS: normal respiratory effort, No retractions, No use of accessory muscles and clear to auscultation bilaterally AUSCULTATION: clear to auscultation bilaterally Cardio: COMMON NORMALS: regular rate, regular rhythm, S1 normal heart sound present, S2 normal heart sound present, No gallops present (Cardio), No clicks present (Cardio), No murmurs present (Cardio) and Peripheral pulses 2+ throughout RATE: regular rate RHYTHM: regular rhythm HEART SOUNDS: S1 normal heart sound present and S2 normal heart sound present PERIPHERAL PULSES: Peripheral pulses 2+ throughout GI: COMMON NORMALS: Normal to inspection, nondistended, normoactive bowel sounds present, Soft to palpation, non-tender and no masses PALPATION: Yes Soft to palpation : COMMON NORMALS: Yes no CVA tenderness BLADDER/KIDNEY EXAM: Yes no CVA tenderness Back/Pelvis: COMMON NORMALS: no CVA tenderness Extremity: NARRATIVE EXTREMITY EXAM: Right lower extremity has erythema and warmth of the skin. There is also red streaking seen that is moving up the inside of right lower leg up to approximately mid thigh. GENERAL: Yes normal exam except as noted and Yes edema (Right lower extremity 2+ pitting edema.) Neuro: COMMON NORMALS: patient oriented x3 and moves all extremities SENSORIUM/ORIENTATION: Yes alert Skin: NARRATIVE SKIN EXAM: Patient has erythema, warmth, tenderness and edema of the right lower extremity. Suspected cellulitis. LESIONS: lesion noted Right Lower Extremity Lesion type: Yes maculopapular Lesion location: Rash is located on the medial aspect of right lower extremity starting superior to the ankle Lesion color: Yes erythematous Lesion surface: No wet, Yes dry, No raised, No pointed, No draining, Yes shiny and Yes warm Lesion border: No raised, Yes smooth, Yes irregular and Yes surrounding erythema Lesion tenderness: Yes mild Lesion finding consistent with: Yes cellulitis (Patient also has some red streaking moving up the inside of the right leg all the way up to approximately mid thigh.) Course Vital Signs: Vital signs: Vital Signs Temperature 99.7 F H 12/09/19 10:20 Pulse Rate 66 12/09/19 12:08 Respiratory Rate 14 12/09/19 12:08 Blood Pressure 163/88 12/09/19 12:08 Pulse Oximetry 97 12/09/19 12:08 MDM - Skin/Abscess/Foreign Bdy MDM Narrative: Medical decision making narrative: Patient is a 69-year-old male who comes to the ED with cellulitis and right leg. Denied fevers, nausea/vomiting. Skin was warm erythematous and tender to the touch. He had 2+ pitting edema to right lower extremity. Some red streaking moving up right lower extremity. White blood cells 12.5. Patient was given IV Rocephin while here in the ED and some fluids. Ultrasound of the right lower extremity was performed and no DVTs or blood clots were seen. Patient was diagnosed cellulitis and discharged with a prescription for Bactrim. He was told to see his PCP in the next 3 to 5 days to reassess cellulitis. I told him to return to ED if after 48 hours of being on antibiotic and cellulitis does not improve. Patient understood and agreed with plan. Lab Data: Attestation: I reviewed the patient's lab results. Labs: Lab Results 12/09/19 12/09/19 Range/Units 11:02 11:02 WBC 12.5 H (4.0-10.0) 10^3/ uL RBC 5.58 H (4.1-5.3) 10^6/u L Hgb 16.6 (11.7-16.6) g/dL Hct 50.3 (42.0-52.0) % MCV 90.1 (80-94) fL MCH 29.7 (28.0-34.0) pg MCHC 33.0 (30.0-36.0) g/dL RDW 14.9 (12.1-15.1) % Plt Count 178 (130-400) 10^3/c mm MPV 10.2 (7.4-10.4) fL Neut % (Auto) 80.3 % Lymph % (Auto) 10.0 % Piatt % (Auto) 8.0 % Eos % (Auto) 0.8 % Baso % (Auto) 0.3 % Neut # (Auto) 10.00 H (1.8-7.7) 10^3/u L Lymph # (Auto) 1.3 (0.8-4.8) 10^3/u L Piatt # (Auto) 1.0 H (0.2-0.9) 10^3/u L Eos # (Auto) 0.1 (0.0-0.8) 10^3/u L Baso # (Auto) 0.0 (0.0-0.1) 10^3/u L Nucleated RBC % (a uto) 0 % Nucleated RBCs # 0.0 /100WBC Sodium 133 L (136-145) mmol/L Potassium 4.0 (3.5-5.1) mmol/L Chloride 99 (98-107) mmol/L Carbon Dioxide 24 (22-29) mmol/L Anion Gap 14.0 (5-19) BUN 17 (8-23) mg/dL Creatinine 1.2 (0.7-1.2) mg/dL GFR Calculation 60.4 L (90-130) mL/min Glucose 120 H (65-115) mg/dL Calculated Osmolal ity 274 L (285-295) mOsm/k g Calcium 9.5 (8.5-10.5) mg/dL Total Bilirubin 0.4 (0.15-1.2) mg/dL AST 27 (0-40) U/L ALT 45 H (0-41) U/L Alkaline Phosphata se 66 (40-130) IU/L Total Protein 7.3 (6.6-8.7) g/dL Albumin 4.1 (3.5-5.2) g/dL Globulin 3.2 (1.3-4.6) g/dL Imaging Data^: US Vascular: Attestation: I personally reviewed and interpreted this imaging study as follows: Radiologist's impression: Right lower extremity ultrasound venous duplex?prelim report no DVTs or blood clots seen. Discharge Plan Discharge Patient Disposition: Home Clinical Impression: Cellulitis Qualifiers: Site of cellulitis: extremity Site of cellulitis of extremity: lower extremity Laterality: right Qualified Code(s): L03.115 - Cellulitis of right lower limb Condition: Stable Prescriptions: New sulfamethoxazole-trimethoprim 800-160 mg tablet 1 tab PO BID 10 Days Qty: 20 RF: 0 No Action aspirin 325 mg Tablet 325 mg PO DAILY RF: 0 esomeprazole magnesium [Nexium] 40 mg Capsule,Delayed Release(Dr/Ec) 40 mg PO DAILY RF: 0 lisinopril 10 mg Tablet 10 mg PO DAILY RF: 0 nitroglycerin [Nitrostat] 0.4 mg Tablet, Sublingual 0.4 mg SUBLINGUAL Q5M PRN (Reason: Chest Pain) RF: 0 gabapentin 300 mg Capsule 300 mg PO BEDTIME RF: 0 mupirocin 2 % Ointment 1 applic TOPICAL DIRECTED RF: 0 furosemide [Lasix] 20 mg Tablet 30 mg PO DAILY RF: 0 diazepam 5 mg Tablet 5 mg PO BID RF: 0 cholecalciferol (vitamin D3) [Vitamin D3] 25 mcg (1,000 unit) Capsule 1,000 unit PO DAILY RF: 0 niacin 500 mg Tablet Extended Release 1,000 mg PO BEDTIME RF: 0 Discharge Orders: Discharge Order (Routine); Ordered 12/09/19 Ordered By: Franko Hoyt Referrals: Christina Jackson DO [Primary Care Provider] - Discharge Diet: Regular Discharge Activity: Increase activity as tolerated Patient Instructions: Cellulitis (ED) Activity Restrictions/Additional Instructions: Follow-up with medical provider as directed in 3-5 days for reevaluation of cellulitis. Take medications as prescribed. Return to the ER or your medical provider if condition worsens. Please read and understand discharge instructions. If any questions, please ask. 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
[2019-12-09 10:51] VITALS: BP 141/74; PULSE 67; RESP 20; O2SAT 96
--- NOTE | 2019-12-09 11:04 | USCV_ITS ---
Franko Posadas Age: 69 Gender: M : 1950 Exam Date: 12/09/2019 11:18 Ordering Phys: Franko Hoyt Technologist: Alena Li Exam Location: [facility] [place] Indication: PAIN, REDNESS, SWELLING OF RIGHT LOWER EXTREMITY HISTORY: Lower extremity swelling. PROCEDURES: Venous duplex imaging was performed in only the right lower extremity. The following venous structures were evaluated: common femoral vein, profunda vein, proximal portion of the greater saphenous vein, superficial femoral vein, and the popliteal vein. In addition, the posterior tibial and peroneal trunk were evaluated. FINDINGS: Normal 2-D Doppler and augmentation and compressibility throughout the lower extremity venous structures. Additional imaging through the proximal calf veins also reveals no thrombus. Limited evaluation of the greater saphenous vein is patent with no thrombus.. CONCLUSIONS No evidence of right lower extremity DVT. A few prominent groin lymph nodes likely reactive Stan Gutierrez MD (Electronically Signed) Final Date: 09 December 2019 12:56 S
[2019-12-09 11:12] LABS: Basophils % 0.3 %; Eosinophils # 0.1 10^3/uL (0.0-0.8); Eosinophils % 0.8 %; Hematocrit 50.3 % (42.0-52.0); Hemoglobin 16.6 g/dL (11.7-16.6); Lymphocytes # 1.3 10^3/uL (0.8-4.8); Mean Corpuscular Hemoglobin 29.7 pg (28.0-34.0); Mean Corpuscular Volume 90.1 fL (80-94); Mean Platelet Volume 10.2 fL (7.4-10.4); Neutrophils % 80.3 %; Nucleated Red Blood Cells % 0 %; Platelet Count 178 10^3/cmm (130-400); Red Blood Count 5.58 10^6/uL (4.1-5.3); Red Cell Distribution Width 14.9 % (12.1-15.1); White Blood Count 12.5 10^3/uL (4.0-10.0)
[2019-12-09] MEDS: sodium chloride 0.9% 500 ML IV (11:12)
[2019-12-09] MEDS: cefTRIAXone 2,000 MG in sodium chloride 0.9% (plus) 50 ML 100 MG IV (11:15)
[2019-12-09 11:35] LABS: Alanine Aminotransferase 45 U/L (0-41); Albumin Level 4.1 g/dL (3.5-5.2); Alkaline Phosphatase 66 IU/L (40-130); Aspartate Amino Transferase 27 U/L (0-40); Blood Urea Nitrogen 17 mg/dL (8-23); Calcium 9.5 mg/dL (8.5-10.5); Carbon Dioxide 24 mmol/L (22-29); Chloride 99 mmol/L (98-107); Globulin 3.2 g/dL (1.3-4.6); Glomerular Filtration Rate 60.4 mL/min (90-130); Glucose 120 mg/dL (65-115); Osmolality Calculated 274 mOsm/kg (285-295); Sodium 133 mmol/L (136-145); Total Bilirubin 0.4 mg/dL (0.15-1.2); Total Protein 7.3 g/dL (6.6-8.7)
[2019-12-09 12:08] VITALS: BP 163/88; PULSE 66; RESP 14; O2SAT 97
== END 2019-12-09 12:08 | disposition home or self-care (01) ==
PROVIDERS: Emergency Provider Physician Assistant; PCP Family Medicine
DX: L03.115 Cellulitis of right lower limb (principal); Z79.82 Long term (current) use of aspirin; I10 Essential (primary) hypertension; E78.5 Hyperlipidemia, unspecified; Z87.891 Personal history of nicotine dependence; M79.89 Other specified soft tissue disorders
CPT/HCPCS: 12345; 80053; 85025; 87040; 93971; 96365; 99283; J0696; J7040

== ENCOUNTER → 2019-12-24 12:13 | Outpatient (BNVA) | payer MEDICARE, MEDICAID, SELFPAY | PROVIDERS: PCP Family Medicine; Visit Provider Nurse Practitioner Family | DX: R19.7 Diarrhea, unspecified (principal); J06.9 Acute upper respiratory infection, unspecified; Z20.818 Contact with and (suspected) exposure to other bacterial communicable diseases | CPT/HCPCS: 87635 ==

== ENCOUNTER 2020-03-21 11:32 | Emergency (ER) | payer MEDICARE, MEDICAID, SELFPAY ==
[2020-03-21 12:16] VITALS: BP 113/70; PULSE 96; RESP 18; TEMP 36.6; O2SAT 96
--- NOTE | 2020-03-21 12:38 | W.ED.GENADLT ---
HPI - General Adult General: Chief complaint: General Medical Stated complaint: bi-lat leg swelling Time Seen by Provider: 03/21/20 12:23 History of Present Illness: HPI narrative: This patient is a 69-year-old male comes in today complaining of right lower leg redness and swelling. He has a history of recurrent cellulitis. He was admitted to the hospital in June with it and then seen again in the ER in November. In June was treated with clindamycin. In November he was treated with Bactrim and improved. He also was diagnosed with COVID-19 at the end of November. He has recovered fully from that. He denies history of congestive heart failure. He does not feel short of breath. He has had some chills. No documented fever. Onset (ago): day(s) (Started yesterday) Location: lower extremity Severity: moderate Quality: aching Pain Consistency: constant Relieving factors: none Exacerbating factors: movement Associated symptoms: Reports fevers/chills; Deny chest pain, dyspnea, headache(s), malaise, nausea, rash or vomiting Review of Systems General: Reports: 10 or more systems reviewed and unremarkable except in HPI and below Const: Reports: chills; Denies: fever(s), fatigue or malaise Eyes: Denies: change in vision ENMT: Denies: odynophagia Card: Denies: chest pain or swelling of feet/ankles Resp: Denies: dyspnea, productive cough or non-productive cough GI: Denies: abdominal pain, nausea or vomiting : Denies: flank pain Musc: Reports: extremity pain and extremity swelling; Denies: neck pain or back pain Skin/Breast: Denies: rash Neuro: Denies: headache(s), numbness in extremities or weakness in extremities Efraín/Lymph: Denies: easy bruising or easy bleeding PFS ED PFSH: Medical History (Updated 03/21/20 @ 15:04 by Dinorah Og MD) Anxiety Bleeding hemorrhoid Chronic migraine with aura HTN (hypertension) Hyperlipidemia Surgical History History of appendectomy History of cholecystectomy History of tonsillectomy Family History Mother Cancer breast Father CAD (coronary artery disease) Cancer Prostate cancer Social History Smoking and tobacco status: never smoked Second hand smoke exposure: No Alcohol intake: never Lives independently: Yes Household members: spouse Marital status: Current occupational status: retired History of recent travel: No Current gender identity: Male Physical Exam Const: COMMON NORMALS: no acute distress, patient oriented x3, no limitations and alert GENERAL APPEARANCE: cooperative and comfortable HENMT: HEAD & SCALP: normal to inspection FACE & SINUS: normal facial exam Eye: GENERAL EYE: appearance normal, both eyes and all related structures Neck/C-Spine: COMMON NORMALS: supple, no meningeal signs and no JVD Chest: COMMONS NORMALS: normal inspection of the chest Resp: COMMON NORMALS: normal respiratory effort, No use of accessory muscles and clear to auscultation bilaterally AUSCULTATION: clear to auscultation bilaterally Cardio: COMMON NORMALS: no JVD, regular rate, regular rhythm and No murmurs present (Cardio) RATE: regular rate RHYTHM: regular rhythm GI: COMMON NORMALS: Normal to inspection, nondistended, normoactive bowel sounds present, Soft to palpation and non-tender INSPECTION: Yes normal to inspection AUSCULTATION: Yes normoactive bowel sounds PALPATION: Yes Soft to palpation Back/Pelvis: COMMON NORMALS: thoracic and lumbar spine normal to inspection Extremity: GENERAL: Yes normal exam except as noted OTHER: Right lower leg with redness, heat, swelling on the medial aspect. Extends about the lower two third of the lower leg but not onto the foot. The area is tender. Neuro: COMMON NORMALS: patient oriented x3, moves all extremities, no focal motor deficits and no sensory deficits noted SENSORIUM/ORIENTATION: Yes alert MENINGEAL SIGNS: Yes no meningeal signs Psych: COMMON NORMALS: mental status grossly normal, cooperative and normal affect Skin: COMMON NORMALS: no rashes or lesions noted and turgor normal GENERAL SKIN EXAM: no rashes or lesions noted and turgor normal Course ED course: Mr. Posadas has cellulitis on his right lower leg. He has had this previously and was treated once with clindamycin and once with Bactrim. He does have an elevated white count today but no fever. He does not want to be admitted to the hospital. We discussed that option as well as the option of of outpatient antibiotics. He prefers to go home but he understands that he may well have to return. We discussed return precautions. We discussed follow-up with his PCP. Vital Signs: Vital signs: Vital Signs Temperature 97.9 F 03/21/20 12:16 Pulse Rate 78 03/21/20 15:30 Respiratory Rate 18 03/21/20 15:30 Blood Pressure 110/64 03/21/20 15:30 Pulse Oximetry 97 03/21/20 15:30 [facility] - General Adult Lab Data: Labs: Lab Results 03/21/20 03/21/20 Range/Units 12:40 12:40 WBC 18.9 H (4.0-10.0) 10^3/ uL RBC 5.30 (4.1-5.3) 10^6/u L Hgb 15.8 (11.7-16.6) g/dL Hct 48.3 (42.0-52.0) % MCV 91.1 (80-94) fL MCH 29.8 (28.0-34.0) pg MCHC 32.7 (30.0-36.0) g/dL RDW 15.9 H (12.1-15.1) % Plt Count 198 (130-400) 10^3/c mm MPV 10.6 H (7.4-10.4) fL Neut % (Auto) 94.6 % Lymph % (Auto) 2.2 % [place] % (Auto) 2.2 % Eos % (Auto) 0.0 % Baso % (Auto) 0.3 % Neut # (Auto) 17.83 H (1.8-7.7) 10^3/u L Lymph # (Auto) 0.4 L (0.8-4.8) 10^3/u L [place] # (Auto) 0.4 (0.2-0.9) 10^3/u L Eos # (Auto) 0.0 (0.0-0.8) 10^3/u L Baso # (Auto) 0.1 (0.0-0.1) 10^3/u L Nucleated RBC % (a uto) 0 % Nucleated RBCs # 0.0 /100WBC Sodium 132 L (136-145) mmol/L Potassium 3.7 (3.5-5.1) mmol/L Chloride 98 (98-107) mmol/L Carbon Dioxide 23 (22-29) mmol/L Anion Gap 14.7 (5-19) BUN 19 (8-23) mg/dL Creatinine 1.0 (0.7-1.2) mg/dL GFR Calculation 74.5 L (90-130) mL/min Glucose 125 H (65-115) mg/dL Calculated Osmolal ity 278 L (285-295) mOsm/k g Calcium 9.1 (8.5-10.5) mg/dL Total Bilirubin 0.4 (0.15-1.2) mg/dL AST 32 (0-40) U/L ALT 43 H (0-41) U/L Alkaline Phosphata se 67 (40-130) IU/L NT-Pro-B Natriuret Pep 494 H (0-125) pg/mL Total Protein 6.8 (6.6-8.7) g/dL Albumin 3.9 (3.5-5.2) g/dL Globulin 2.9 (1.3-4.6) g/dL Discharge Plan Discharge Patient Disposition: Home Clinical Impression: Cellulitis Qualifiers: Site of cellulitis: extremity Site of cellulitis of extremity: lower extremity Laterality: right Qualified Code(s): L03.115 - Cellulitis of right lower limb Condition: Stable Prescriptions: New clindamycin HCl 300 mg capsule 300 mg PO Q6H 10 Days Qty: 40 RF: 0 hydrocodone-acetaminophen 5-325 mg tablet 1 tab PO Q6H PRN (Reason: pain) Qty: 20 RF: 0 No Action triamcinolone acetonide 0.1 % ointment 1 applic TOPICAL BID Qty: 80 RF: 1 aspirin 325 mg Tablet 325 mg PO DAILY RF: 0 esomeprazole magnesium [Nexium] 40 mg Capsule,Delayed Release(Dr/Ec) 40 mg PO DAILY RF: 0 lisinopril 10 mg Tablet 10 mg PO DAILY RF: 0 nitroglycerin [Nitrostat] 0.4 mg Tablet, Sublingual 0.4 mg SUBLINGUAL Q5M PRN (Reason: Chest Pain) RF: 0 gabapentin 300 mg Capsule 300 mg PO BEDTIME RF: 0 mupirocin 2 % Ointment 1 applic TOPICAL DIRECTED RF: 0 furosemide [Lasix] 20 mg Tablet 30 mg PO DAILY RF: 0 diazepam 5 mg Tablet 5 mg PO BID RF: 0 cholecalciferol (vitamin D3) [Vitamin D3] 25 mcg (1,000 unit) Capsule 1,000 unit PO DAILY RF: 0 niacin 500 mg tablet extended release 500 mg PO BEDTIME RF: 0 Discharge Orders: Discharge Order (Routine); Ordered 03/21/20 Ordered By: Dinorah Og Referrals: Christina Jackson DO [Primary Care Provider] - Discharge Diet: Usual diet Discharge Activity: Limit activity as instructed Patient Instructions: Cellulitis (ED) Activity Restrictions/Additional Instructions: Keep your leg elevated to reduce swelling and pain. It should be up anytime you are sitting and should never be hanging over the edge of a bed or chair. Return to the ER if not improving within 48 hours. Return as well for significant worsening of the redness, pain, swelling or if you develop a fever. Coding Level of Care Code ED Internet Marketing Consultant for [facility] Exam Comprehensive
[2020-03-21] MEDS: HYDROcodone-acetaminophen 5-325 mg Tablet 1 TAB PO (12:50)
[2020-03-21 13:01] LABS: Basophils # 0.1 10^3/uL (0.0-0.1); Basophils % 0.3 %; Hematocrit 48.3 % (42.0-52.0); Hemoglobin 15.8 g/dL (11.7-16.6); Lymphocytes # 0.4 10^3/uL (0.8-4.8); Lymphocytes % 2.2 %; Mean Corpuscular HGB Conc 32.7 g/dL (30.0-36.0); Mean Corpuscular Hemoglobin 29.8 pg (28.0-34.0); Mean Corpuscular Volume 91.1 fL (80-94); Mean Platelet Volume 10.6 fL (7.4-10.4); Monocytes # 0.4 10^3/uL (0.2-0.9); Monocytes % 2.2 %; Neutrophils # 17.83 10^3/uL (1.8-7.7); Neutrophils % 94.6 %; Nucleated Red Blood Cells % 0 %; Platelet Count 198 10^3/cmm (130-400); Red Cell Distribution Width 15.9 % (12.1-15.1); White Blood Count 18.9 10^3/uL (4.0-10.0)
[2020-03-21 13:39] LABS: Alanine Aminotransferase 43 U/L (0-41); Albumin Level 3.9 g/dL (3.5-5.2); Alkaline Phosphatase 67 IU/L (40-130); Anion Gap 14.7 (5-19); Aspartate Amino Transferase 32 U/L (0-40); Blood Urea Nitrogen 19 mg/dL (8-23); Calcium 9.1 mg/dL (8.5-10.5); Carbon Dioxide 23 mmol/L (22-29); Chloride 98 mmol/L (98-107); Globulin 2.9 g/dL (1.3-4.6); Glomerular Filtration Rate 74.5 mL/min (90-130); Glucose 125 mg/dL (65-115); NT Pro B Type Natriuretic Pept 494 pg/mL (0-125); Osmolality Calculated 278 mOsm/kg (285-295); Potassium 3.7 mmol/L (3.5-5.1); Sodium 132 mmol/L (136-145); Total Bilirubin 0.4 mg/dL (0.15-1.2); Total Protein 6.8 g/dL (6.6-8.7)
[2020-03-21 13:46] VITALS: BP 94/56; PULSE 94; RESP 18; O2SAT 93
[2020-03-21] MEDS: clindamycin 900 MG/50 ML PREMIX 100 MG IV (14:17)
[2020-03-21 15:30] VITALS: BP 110/64; PULSE 78; RESP 18; O2SAT 97
== END 2020-03-21 15:30 | disposition home or self-care (01) ==
PROVIDERS: Emergency Provider Emergency Medicine; PCP Family Medicine
DX: L03.115 Cellulitis of right lower limb (principal); Z79.82 Long term (current) use of aspirin; I10 Essential (primary) hypertension; E78.5 Hyperlipidemia, unspecified
CPT/HCPCS: 12345; 80053; 83880; 85025; 96365; 99282; 99283; J3490

== ENCOUNTER 2020-05-24 09:30 | Emergency (ER) | payer MEDICARE, MEDICAID, SELFPAY ==
[2020-05-24 09:41] VITALS: BP 150/84; PULSE 68; RESP 18; TEMP 36.7; O2SAT 96; BMI 27.1
--- NOTE | 2020-05-24 09:50 | ED_ITS ---
HPI - Extremity Problem General: Chief complaint: Extremity Problem,Nontraumatic Stated complaint: RED/SWOLLEN LEG Time Seen by Provider: 05/24/20 09:45 History of Present Illness: HPI Narrative: Patient presents with a history of cellulitis right lower leg. Has responded well antibiotics in the past patient requesting that again. MD Complaint: extremity swelling Onset (ago): day(s) (2) Pain Consistency: colicky Location: right and lower extremity Severity scale (1-10): 4 Quality: aching Radiation: none Relieving factors: nothing Exacerbating factors: range of motion Associated symptoms: Reports no associated symptoms; Deny chest pain, fever(s) or rash Review of Systems Const: Denies: fever(s), chills or body aches Eyes: Denies: change in vision or blurry vision ENMT: Denies: throat pain or nasal congestion Card: Denies: chest pain or dyspnea on exertion Resp: Denies: dyspnea, productive cough or non-productive cough GI: Denies: abdominal pain, nausea or vomiting : Denies: difficulty urinating Musc: Denies: extremity pain Skin/Breast: Reports: erythema (Right lower extremity) and skin tenderness; Denies: rash Neuro: Denies: headache(s) Psych: Denies: anxiety or depression Efraín/Lymph: Denies: easy bruising PFSH ED PFSH: Medical History (Updated 05/24/20 @ 09:54 by ERIK Ibrahim) Anxiety Bleeding hemorrhoid Chronic migraine with aura HTN (hypertension) Hyperlipidemia Surgical History History of appendectomy History of cholecystectomy History of tonsillectomy Family History Mother Cancer breast Father CAD (coronary artery disease) Cancer Prostate cancer Social History Smoking and tobacco status: never smoked Second hand smoke exposure: No Alcohol intake: never Lives independently: Yes Household members: spouse Marital status: Current occupational status: retired History of recent travel: No Current gender identity: Male Physical Exam Const: COMMON NORMALS: no acute distress, average body habitus and patient oriented x3 HENMT: COMMON NORMALS: normocephalic HEAD & SCALP: normal to inspection and normocephalic FACE & SINUS: normal facial exam Eye: COMMON NORMALS: conjunctivae normal GENERAL EYE: appearance normal, both eyes and all related structures CONJUNCTIVA: Yes conjunctivae normal Neck/C-Spine: COMMON NORMALS: no JVD Chest: COMMONS NORMALS: normal inspection of the chest Resp: COMMON NORMALS: normal respiratory effort and clear to auscultation bilaterally AUSCULTATION: clear to auscultation bilaterally Cardio: COMMON NORMALS: no JVD, regular rate and regular rhythm RATE: regular rate RHYTHM: regular rhythm GI: COMMON NORMALS: Normal to inspection, nondistended, normoactive bowel sounds present Extremity: COMMON NORMALS: full ROM RIGHT LOWER EXTREMITY: Yes lower leg (Mild redness and swelling to right lower extremity Homans' sign negative) Right lower leg: Yes neurovascular exam ( good distal neurovascular status) Neuro: COMMON NORMALS: patient oriented x3 Course Vital Signs: Vital signs: Vital Signs Temperature 98.0 F 05/24/20 09:41 Pulse Rate 68 05/24/20 09:41 Respiratory Rate 19 H 05/24/20 10:30 Blood Pressure 150/84 05/24/20 09:41 Pulse Oximetry 96 05/24/20 09:41 MDM - Extremity (Nontraumatic) MDM Narrative: Medical decision making narrative: Right leg with mild redness negative Homans' sign patient said this is consistent with his past cellulitis he has had. Has no other complaints or problems denies fever chills or other problems. Patient is going follow-up with his primary care doctor this week. Differential would include clot venous insufficiency CHF. Discharge Plan Discharge Patient Disposition: Home Clinical Impression: Cellulitis Qualifiers: Site of cellulitis: extremity Site of cellulitis of extremity: lower extremity Laterality: right Qualified Code(s): L03.115 - Cellulitis of right lower limb Condition: Stable Prescriptions: New Bactrim DS 800-160 mg tablet 1 tab PO BID 10 Days Qty: 20 RF: 0 No Action triamcinolone acetonide 0.1 % ointment 1 applic TOPICAL BID Qty: 80 RF: 1 hydrocodone-acetaminophen 5-325 mg tablet 1 tab PO Q6H PRN (Reason: pain) Qty: 20 RF: 0 aspirin 325 mg Tablet 325 mg PO DAILY RF: 0 esomeprazole magnesium [Nexium] 40 mg Capsule,Delayed Release(Dr/Ec) 40 mg PO DAILY RF: 0 lisinopril 10 mg Tablet 10 mg PO DAILY RF: 0 nitroglycerin [Nitrostat] 0.4 mg Tablet, Sublingual 0.4 mg SUBLINGUAL Q5M PRN (Reason: Chest Pain) RF: 0 gabapentin 300 mg Capsule 300 mg PO BEDTIME RF: 0 mupirocin 2 % Ointment 1 applic TOPICAL DIRECTED RF: 0 furosemide [Lasix] 20 mg Tablet 30 mg PO DAILY RF: 0 diazepam 5 mg Tablet 5 mg PO BID RF: 0 cholecalciferol (vitamin D3) [Vitamin D3] 25 mcg (1,000 unit) Capsule 1,000 unit PO DAILY RF: 0 niacin 500 mg tablet extended release 500 mg PO BEDTIME RF: 0 Discharge Orders: Discharge ED (Routine); Ordered 05/24/20 Ordered By: Eligio Tom Referrals: Christina Jackson DO [Primary Care Provider] - Discharge Diet: Usual diet Discharge Activity: Increase activity as tolerated Patient Instructions: Cellulitis (ED) Activity Restrictions/Additional Instructions: Follow-up with medical provider as directed. Take medications as prescribed. Return to the ER or your medical provider if condition worsens. Please read and understand discharge instructions. If any questions ask please. Coding Level of Care Code ED Litigation Services Manager for [facility] Exam Comprehensive
[2020-05-24] MEDS: cefTRIAXone 1,000 MG in lidocaine 1% 2.1 ML 1 MG IM (10:04)
[2020-05-24 10:14] VITALS: RESP 19
[2020-05-24 10:30] VITALS: RESP 19
== END 2020-05-24 10:31 | disposition home or self-care (01) ==
PROVIDERS: Emergency Provider Nurse Practitioner Family; PCP Family Medicine
DX: L03.115 Cellulitis of right lower limb (principal); Z79.82 Long term (current) use of aspirin; I10 Essential (primary) hypertension; E78.5 Hyperlipidemia, unspecified
CPT/HCPCS: 12345; 96372; 99281; 99283; J0696

== ENCOUNTER 2020-07-16 11:34 | Inpatient (IN) | payer MEDICARE, MEDICAID, SELFPAY ==
[2020-07-16] VITALS (8 sets, daily range): BP systolic 111–140; BP diastolic 69–75; PULSE 86–97; RESP 17–39; TEMP 37.1–39.3; O2SAT 93–97; BMI 31.1
[2020-07-16] MEDS: piperacillin-tazobactam 3.375 GM in sodium chloride 0.9% (plus) 50 ML IV (12:24)
--- NOTE | 2020-07-16 12:46 | ED_ITS ---
HPI - Extremity Problem General: Chief complaint: Extremity Injury, Lower Stated complaint: Inflammation/Redness In L. Leg Time Seen by Provider: 07/16/20 11:59 Source: patient and old records reviewed Mode of arrival: ambulatory Limitations: no limitations History of Present Illness: HPI Narrative: 70-year-old male presenting to the ER with complaints of swelling, redness and warmth of his left lower leg since last night. Additional symptoms include fever, nausea, vomiting, lower abdominal pain, and diarrhea?all of which started around the same time. He denies chest pain or difficulty breathing. He has had productive cough. No sore throat or watery eyes. He has recurrent cellulitis of his left lower leg, most recently in May of this year. The redness and swelling apparently do improve slightly with treatment, but then get worse as time goes on. He is a poor historian, difficult to get a comprehensive HPI MD Complaint: extremity swelling Onset (ago): hour(s) Pain Consistency: constant Location: left and lower extremity Quality: aching Associated symptoms: Reports fever(s) and rash; Deny chest pain or short of breath Context: recent travel Review of Systems General: Reports: 10 or more systems reviewed and unremarkable except in HPI and below Const: Reports: fever(s), chills, body aches, change in appetite and fatigue Eyes: Denies: change in vision, blurry vision, blind spots or eye redness ENMT: Denies: throat pain, odynophagia, nasal congestion or sinus pain Card: Reports: edema and swelling of feet/ankles; Denies: chest pain, irregular heart rhythm or lightheadedness Resp: Reports: dyspnea, productive cough and chest congestion; Denies: wheezing GI: Reports: abdominal pain, nausea, vomiting, diarrhea, bloating and GI cramping : Reports: difficulty urinating and dysuria Musc: Reports: extremity pain and extremity swelling; Denies: neck pain or back pain Skin/Breast: Reports: rash, erythema, skin pain, lesions and changes in skin color; Denies: pruritus Neuro: Denies: headache(s), numbness in extremities, weakness in extremities, lack of coordination or difficulty walking Endo: Denies: polyuria, polydipsia or tired all the time Efraín/Lymph: Reports: purpura; Denies: easy bruising, easy bleeding or petechiae All/Imm: Denies: urticaria, throat swelling or facial swelling PFSH ED PFSH: Medical History (Updated 07/16/20 @ 17:14 by Dinorah Johnson MD) Anxiety Bleeding hemorrhoid Chronic migraine with aura HTN (hypertension) Hyperlipidemia Surgical History History of appendectomy History of cholecystectomy History of tonsillectomy Family History Mother Cancer breast Father CAD (coronary artery disease) Cancer Prostate cancer Social History Smoking and tobacco status: never smoked Second hand smoke exposure: No Alcohol intake: never Lives independently: Yes Household members: spouse Marital status: Current occupational status: retired History of recent travel: No Current gender identity: Male Physical Exam Const: COMMON NORMALS: no acute distress, patient oriented x3 and alert EXAM LIMITATIONS: no altered mental status GENERAL APPEARANCE: cooperative and ill appearing; not in distress, not anxious and not disheveled NUTRITIONAL APPEARANCE: obese centrally obese ORIENTATION/CONSCIOUSNESS: Yes oriented to person and Yes oriented to time HENMT: COMMON NORMALS: normocephalic and atraumatic HEAD & SCALP: normocephalic and atraumatic FACE & SINUS: normal facial exam and face symmetric Eye: COMMON NORMALS: Equal, round and reactive pupils present and EOMs intact bilaterally GENERAL EYE: exophthalmos ALIGNMENT: Yes alignment normal CONJUNCTIVA: Yes conjunctival abnormal positive bilateral conjunctival injection SCLERA: scleral abnormal Laterality of scleral abnormality: positive bilateral scleral injection PUPIL: Yes Equal, round and reactive pupils present Neck/C-Spine: GENERAL: Yes normal visual inspection, Yes trachea midline, No a nterior neck swelling and No lymphadenopathy Chest: COMMONS NORMALS: normal inspection of the chest and normal palpation of entire chest wall Resp: COMMON NORMALS: normal respiratory effort EFFORT & INSPECTION: No tac hypneic, No respiratory distress, No pursed lip breathing and No labored AUSCULTATION: crackles, rales, rhonchi and bronchial breath sounds Cardio: COMMON NORMALS: regular rate, regular rhythm, S1 normal heart sound present and S2 normal heart sound present RATE: regular rate RHYTHM: regular rhythm HEART SOUNDS: S1 normal heart sound present and S2 normal heart sound present GI: COMMON NORMALS: Soft to palpation AUSCULTATION: Yes Hyperactive bowel sounds present PALPATION: Yes Soft to palpation, Yes Tenderness to palpation present (GI) Details: LLQ and LUQ, No Guarding due to palpation present (GI), No Rigid due to palpation, No Pulsatile mass present and No Abdominal wall crepitus present Neuro: COMMON NORMALS: patient oriented x3 SENSORIUM/ORIENTATION: Yes alert, Yes oriented to person and Yes oriented to time Skin: SKIN IMAGES (MALE): 1. Violaceous, purpuric eruption with subcutaneous edema, warm to touch. No fluctuance. No blisters. Well-circumscribed, macular, nonblanchable 2. Faint erythema and subcutaneous edema left upper groin 3. Rash is circumferential, but spares the plantar surface and distal foot GENERAL SKIN EXAM: erythema and purpura RASHES: rashes noted Course Vital Signs: Vital signs: Vital Signs Temperature 102.8 F H 07/16/20 11:46 Pulse Rate 86 07/16/20 15:59 Respiratory Rate 20 H 07/16/20 15:59 Blood Pressure 111/75 07/16/20 15:59 Pulse Oximetry 93 07/16/20 15:59 MDM - Extremity (Nontraumatic) MDM Narrative: Medical decision making narrative: 70-year-old male with fever, worsening redness and swelling of his left lower leg, abdominal pain, nausea, vomiting, diarrhea, cough?all for the last 24 hours. Empiric treatment with broad-spectrum antibiotics initiated, sepsis work-up, fluid bolus, blood cultures drawn etc. He has had numerous venous Dopplers in the past for the same left lower extre mity swelling and erythema, all have been negative, so I do not think repeat Doppler is necessary. The skin changes on his left lower extremity resemble vasculitis more than cellulitis, so I am not convinced it is the sole etiology of his fever and leukocytosis Urine clear-no proteinuria, no hematuria, no casts Chest x-ray shows linear densities of the lung bases. CT abdomen pelvis shows bilateral lower lobe consolidations, worse on the right. WBC 20.5, neutrophil predominance, no bandemia CRP 250, ESR normal-vasculitis less likely He has maintained his blood pressures, he still febrile, but not tachycardic. Discussed the case with Dr. Starkey, he accepts the patient for admission for continued IV antibiotics until there is observed clinical improvement,, he agrees that further testing probably needs to be done to rule out underlying cause for this current problem?vascular, rheumatology, or dermatology etc. since he has no other organ involvement, and is otherwise stable, transfer for urgent specialist consult is not indicated at this time. Medical Records: Attestation: I reviewed the patient's medical records. Lab Data: Attestation: I reviewed the patient's lab results. Labs: Lab Results 07/16/20 07/16/20 07/16/20 Range/Units 12:32 12:32 12:32 WBC 20.5 H (4.0-10.0) 10^3/ uL RBC 5.45 H (4.1-5.3) 10^6/u L Hgb 16.2 (11.7-16.6) g/dL Hct 48.7 (42.0-52.0) % MCV 89.4 (80-94) fL MCH 29.7 (28.0-34.0) pg MCHC 33.3 (30.0-36.0) g/dL RDW 14.7 (12.1-15.1) % Plt Count 206 (130-400) 10^3/c mm MPV 10.4 (7.4-10.4) fL Neut % (Auto) 93.1 % Lymph % (Auto) 1.8 % Pettis % (Auto) 1.8 % Eos % (Auto) 0.7 % Baso % (Auto) 0.2 % Neut # (Auto) 19.05 H (1.8-7.7) 10^3/u L Lymph # (Auto) 0.4 L (0.8-4.8) 10^3/u L Pettis # (Auto) 0.4 (0.2-0.9) 10^3/u L Eos # (Auto) 0.2 (0.0-0.8) 10^3/u L Baso # (Auto) 0.1 (0.0-0.1) 10^3/u L Nucleated RBC % (a uto) 0 % Nucleated RBCs # 0.0 /100WBC ESR (0-10) mm/hr Sodium 133 L (136-145) mmol/L Potassium 3.5 (3.5-5.1) mmol/L Chloride 97 L (98-107) mmol/L Carbon Dioxide 25 (22-29) mmol/L Anion Gap 14.5 (5-19) BUN 20 (8-23) mg/dL Creatinine 1.1 (0.7-1.2) mg/dL GFR Calculation 66.6 L (90-130) mL/min Glucose 121 H (65-115) mg/dL Calculated Osmolal ity 280 L (285-295) mOsm/k g Lactic Acid 2.2 (0.5-2.2) mmol/L Calcium 9.0 (8.5-10.5) mg/dL Total Bilirubin 0.6 (0.15-1.2) mg/dL AST 38 (0-40) U/L ALT 55 H (0-41) U/L Alkaline Phosphata se 57 (40-130) IU/L C-Reactive Protein 249.3 H (0.0-4.9) mg/L Total Protein 6.9 (6.6-8.7) g/dL Albumin 3.9 (3.5-5.2) g/dL Globulin 3.0 (1.3-4.6) g/dL Urine Color (Yellow) Urine Appearance (CLEAR) Urine pH (5-7) Ur Specific Gravit y (1.005-1.030) Urine Protein (Negative) Urine Glucose (UA) (Normal) Urine Ketones (Negative) Urine Blood (Negative) Urine Nitrate (Negative) Urine Bilirubin (Negative) Urine Urobilinogen (Negative) mg/dL Ur Leukocyte Wilda ase (Negative) Urine RBC (0-2) /hpf Urine WBC (0-5) /hpf Ur Squamous Epith Cells (0-5) /hpf Amorphous Sediment Urine Bacteria (NONE) /hpf 07/16/20 07/16/20 Range/Units 12:32 13:49 WBC (4.0-10.0) 10^3/ uL RBC (4.1-5.3) 10^6/u L Hgb (11.7-16.6) g/dL Hct (42.0-52.0) % MCV (80-94) fL MCH (28.0-34.0) pg MCHC (30.0-36.0) g/dL RDW (12.1-15.1) % Plt Count (130-400) 10^3/c mm MPV (7.4-10.4) fL Neut % (Auto) % Lymph % (Auto) % Pettis % (Auto) % Eos % (Auto) % Baso % (Auto) % Neut # (Auto) (1.8-7.7) 10^3/u L Lymph # (Auto) (0.8-4.8) 10^3/u L Pettis # (Auto) (0.2-0.9) 10^3/u L Eos # (Auto) (0.0-0.8) 10^3/u L Baso # (Auto) (0.0-0.1) 10^3/u L Nucleated RBC % (a uto) % Nucleated RBCs # /100WBC ESR 7 (0-10) mm/hr Sodium (136-145) mmol/L Potassium (3.5-5.1) mmol/L Chloride (98-107) mmol/L Carbon Dioxide (22-29) mmol/L Anion Gap (5-19) BUN (8-23) mg/dL Creatinine (0.7-1.2) mg/dL GFR Calculation (90-130) mL/min Glucose (65-115) mg/dL Calculated Osmolal ity (285-295) mOsm/k g Lactic Acid (0.5-2.2) mmol/L Calcium (8.5-10.5) mg/dL Total Bilirubin (0.15-1.2) mg/dL AST (0-40) U/L ALT (0-41) U/L Alkaline Phosphata se (40-130) IU/L C-Reactive Protein (0.0-4.9) mg/L Total Protein (6.6-8.7) g/dL Albumin (3.5-5.2) g/dL Globulin (1.3-4.6) g/dL Urine Color Yellow (Yellow) Urine Appearance Clear (CLEAR) Urine pH 5 (5-7) Ur Specific Gravit y 1.020 (1.005-1.030) Urine Protein Trace (Negative) Urine Glucose (UA) Norm (Normal) Urine Ketones Negative (Negative) Urine Blood Neg (Negative) Urine Nitrate Negative (Negative) Urine Bilirubin Neg (Negative) Urine Urobilinogen Norm (Negative) mg/dL Ur Leukocyte Wilda ase Negative (Negative) Urine RBC None (0-2) /hpf Urine WBC Rare (0-5) /hpf Ur Squamous Epith Cells None (0-5) /hpf Amorphous Sediment Not Reportable Urine Bacteria Trace (NONE) /hpf Discharge Plan Discharge Patient Disposition: Admitted As Inpatient Clinical Impression: Enterocolitis Cellulitis Qualifiers: Site of cellulitis: extremity Site of cellulitis of extremity: lower extremity Laterality: left Qualified Code(s): L03.116 - Cellulitis of left lower limb Pneumonia Qualifiers: Pneumonia type: due to unspecified organism Laterality: bilateral Lung loca tion: lower lobe of lung Qualified Code(s): J18.9 - Pneumonia, unspecified organism Condition: Stable Coding Level of Care Code ED Herb Digger for Chg Fwd Exam Comprehensive
--- NOTE | 2020-07-16 12:57 | XR_ITS ---
WS: [id number] XR chest 1V portable [id number] REASON FOR EXAM: fever, FINDINGS: Compared to previous examination of 06/19/2019, there are some linear areas of density in both lung ba ses which are most compatible with atelectasis or fibrous scarring. No other definite acute pulmonary parenchymal findings. Moderate tortuosity thoracic aorta without aneurysmal dilatation. Normal heart size. Mild degenerative spondylosis in the mid and lower thoracic spine. XR/XR chest 1V portable [id number] IMPRESSION: Linear densities in the lung bases as above. No evidence of acute inflammatory process.
[2020-07-16 13:08] LABS: Basophils # 0.1 10^3/uL (0.0-0.1); Basophils % 0.2 %; Eosinophils # 0.2 10^3/uL (0.0-0.8); Eosinophils % 0.7 %; Hematocrit 48.7 % (42.0-52.0); Hemoglobin 16.2 g/dL (11.7-16.6); Lymphocytes # 0.4 10^3/uL (0.8-4.8); Lymphocytes % 1.8 %; Mean Corpuscular HGB Conc 33.3 g/dL (30.0-36.0); Mean Corpuscular Hemoglobin 29.7 pg (28.0-34.0); Mean Corpuscular Volume 89.4 fL (80-94); Mean Platelet Volume 10.4 fL (7.4-10.4); Monocytes # 0.4 10^3/uL (0.2-0.9); Monocytes % 1.8 %; Neutrophils # 19.05 10^3/uL (1.8-7.7); Neutrophils % 93.1 %; Nucleated Red Blood Cells % 0 %; Platelet Count 206 10^3/cmm (130-400); Red Blood Count 5.45 10^6/uL (4.1-5.3); Red Cell Distribution Width 14.7 % (12.1-15.1); White Blood Count 20.5 10^3/uL (4.0-10.0)
[2020-07-16 13:29] LABS: Alanine Aminotransferase 55 U/L (0-41); Albumin Level 3.9 g/dL (3.5-5.2); Alkaline Phosphatase 57 IU/L (40-130); Anion Gap 14.5 (5-19); Aspartate Amino Transferase 38 U/L (0-40); Blood Urea Nitrogen 20 mg/dL (8-23); C Reactive Protein 249.3 mg/L (0.0-4.9); Carbon Dioxide 25 mmol/L (22-29); Chloride 97 mmol/L (98-107); Glomerular Filtration Rate 66.6 mL/min (90-130); Glucose 121 mg/dL (65-115); Osmolality Calculated 280 mOsm/kg (285-295); Potassium 3.5 mmol/L (3.5-5.1); Sodium 133 mmol/L (136-145); Total Bilirubin 0.6 mg/dL (0.15-1.2); Total Protein 6.9 g/dL (6.6-8.7)
[2020-07-16 13:30] LABS: Lactic Sepsis W/Reflex 2.2 mmol/L (0.5-2.2)
[2020-07-16 13:54] LABS: Erythrocyte Sedimentation Rate 7 mm/hr (0-10)
[2020-07-16] MEDS: acetaminophen 500 mg Tablet 1000 MG PO (13:56)
[2020-07-16] MEDS: sodium chloride 0.9% 1,000 ML 999 ML IV (13:59)
[2020-07-16 14:17] LABS: Add Urine Microscopic? YES; Bilirubin Urine Neg (Negative); Blood Urine Neg (Negative); Glucose Urine UA Norm (Normal); Ketones Urine Negative (Negative); Leukocyte Esterase Urine Negative (Negative); Nitrate Urine Negative (Negative); Protein Urine Trace (Negative); Urine Appearance Clear (CLEAR); Urine Color Yellow (Yellow); Urobilinogen Urine Norm (Negative); WBC Urine RARE /hpf (0-5); pH Urine 5 (5-7)
[2020-07-16 14:18] LABS: Bacteria Urine TRACE /hpf
--- NOTE | 2020-07-16 14:23 | CT_ITS ---
WS: [id number] CT abdomen pelvis w con* [id number] REASON FOR EXAM: LLQ abdominal pain, N/V, fever, IV CONTRAST ADMINISTERED: 95 mL of Omnipaque 300. TOTAL EXAM DLP: 1798.[address] scans at [facility] use at least one of these dose optimization techniques: automat ed exposure control; mA and/or kV adjustment per patient size (includes targeted exams where dose is matched to clinical indication); or iterative reconstruction. FINDINGS: ABDOMEN: There is consolidation in both lower lungs. Most prominent on the right. Calcified granulomas in the spleen. Fatty infiltration of the pancreas. Gallbladder has been surgical ly removed. The liver demonstrates a small low-attenuation area a 6 mm area of low attenuation which on previous CT scan of the abdomen 12/18/2015 measured 3 cm in diameter. Normal adrenal glands. Small cysts within both kidneys. Mild dilatation of the extrarenal pelvis bila terally. No change in the kidneys compared to 12/18/2015. No mass, adenopathy, free fluid, or focal fluid collection. The abdominal aorta and its major branches are unremarkable. A normal appendix is not identified. No findings of appendicitis. Sigmoid diverticulosis without find ings of diverticulitis. Mild dilatation of several bowel loops in the mid and lower abdomen, nonspeci fic. PELVIS the bladder is unremarkable. No mass, adenopathy, focal fluid collection, or free fluid. Left inguinal hernia of fat. BONE Lumbar spine and pelvic bony structure are unremarkable. CT/CT abdomen pelvis w con* [id number] IMPRESSION: Bilateral lung base consolidation consistent with pneumonitis. No definite acute abdominal or pelvic abnormality is identified. Nonspecific mi ld dilatation of several small bowel loops.
[2020-07-16] MEDS: vancomycin 1,500 MG/300 ML PIGGYBACK 200 MG IV (14:44)
[2020-07-16 14:48] LABS: Reflex Lactate Order REFLEX LACTIC ORDERD
[2020-07-16] MEDS: iohexol 300 mg/mL 100 mL Btl IV (15:15)
--- NOTE | 2020-07-16 18:29 | PM.HP ---
Providers/Chief Complaint Admitting Physician: Tk Starkey MD Primary Care Provider: Christina Jackson DO Chief Complaint: Inflammation/Redness In L. Leg History of Present Illness Franko Posadas is a 70 year old male with PMH of HTN, DLD came in with c/o swelling, redness and warmth of his left lower leg, fever, nausea, vomiting, lower abdominal pain, and diarrhea, He has had productive cough since last night. He denies chest pain or difficulty breathing. No sore throat or watery eyes.Patient has h/o recurrent cellulitis of his left lower leg, most recently in May of this year. The redness and swelling apparently do improve slightly with treatment, but then get worse as time goes on. Patient is a poor historian. Upon arrival in the ER he was worked up for above mentioned complain Chest x-ray :linear densities of the lung bases. CT abdomen pelvis shows bilateral lower lobe consolidations, worse on the right. WBC 20.5, neutrophil predominance , CRP 250, ESR normal.Urine analysis : clear-no proteinuria, no hematuria, no casts Pertinent Vitals: T max : 102.8 ,no tachycardia though with a good MAP. Sepsis work up was initiated in the ER : Blood Culture ,received a dose of van and zosyn. No L/E Doppler was ordered as prior doppler studies have been negative.Less likely dvt. Review of Systems Const: Denies: chills or diaphoresis Card: Denies: palpitations Resp: Denies: wheezing or pain on inspiration GI: Denies: abdominal pain : Denies: flank pain Musc: Denies: back pain Neuro: Denies: headache(s) Medications/Allergies Home Medications Medication Instructions Recorded Confirmed Last Taken Type aspirin 325 mg PO QAM 06/19/19 07/16/20 07/16/20 History cholecalciferol (vitamin D3) 1,000 unit PO QAM 06/19/19 07/16/20 07/16/20 History [Vitamin D3] diazepam 5 mg PO Q12H PRN 06/19/19 07/16/20 07/16/20 08:00 History furosemide [Lasix] See Rx Instructions .ROUTE .COMPLEX 06/19/19 07/16/20 07/16/20 History lisinopril 10 mg PO QAM 06/19/19 07/16/20 07/16/20 History nitroglycerin [Nitrostat] 0.4 mg SUBLINGUAL Q5M PRN 06/19/19 07/16/20 Unknown History niacin 500 mg tablet,extended 1,000 mg PO BEDTIME tab 12/24/19 07/16/20 07/15/20 History release acetaminophen [Tylenol Extra 1,000 mg PO PRN 07/16/20 07/16/20 Unknown History Strength] omeprazole 20 mg PO DAILY 07/16/20 07/16/20 07/16/20 History Allergies Allergy/AdvReac Type Severity Reaction Status Date / Time No Known Allergies Allergy Verified 07/16/20 12:44 PFSH Acute PFSH: Medical History (Updated 07/16/20 @ 23:40 by Tk Starkey MD) Anxiety Bleeding hemorrhoid Chronic migraine with aura HTN (hypertension) Hyperlipidemia Surgical History History of appendectomy History of cholecystectomy History of tonsillectomy Family History Mother Cancer breast Father CAD (coronary artery disease) Cancer Prostate cancer Social History Smoking and tobacco status: never smoked Second hand smoke exposure: No Alcohol intake: never Lives independently: Yes Household members: spouse Marital status: Current occupational status: retired History of recent travel: No Current gender identity: Male Vitals/I&O/Wt Last Vital Signs Temp 102.8 F H 07/16/20 11:46 Pulse 90 07/16/20 18:01 Resp 21 H 07/16/20 18:01 BP 125/74 07/16/20 18:01 Pulse Ox 97 07/16/20 18:01 07/16/20 07/16/20 07/16/20 06:59 14:59 22:59 Intake Total 1050 / 1050 300 / 1350 Balance 1050 / 1050 300 / 1350 Weight last 48 hrs Weight 104.326 kg Physical Exam Const: COMMON NORMALS: patient oriented x3 HENMT: COMMON NORMALS: normocephalic and atraumatic HEAD & SCALP: normocephalic and atraumatic EXTERNAL EAR: Yes external ears normal Resp: COMMON NORMALS: clear to auscultation bilaterally AUSCULTATION: clear to auscultation bilaterally Cardio: COMMON NORMALS: regular rate, regular rhythm, S1 normal heart sound present, S2 normal heart sound present, No gallops present (Cardio), No murmurs present (Cardio), No rub (Cardio) and Peripheral pulses 2+ throughout RATE: regular rate RHYTHM: regular rhythm HEART SOUNDS: S1 normal heart sound present and S2 normal heart sound present PERIPHERAL PULSES: Peripheral pulses 2+ throughout GI: COMMON NORMALS: Normal to inspection, nondistended, normoactive bowel sounds present, Soft to palpation, non-tender, No hepatosplenomegaly present and no masses AUSCULTATION: Yes normoactive bowel sounds PALPATION: Yes Soft to palpation and Yes No hepatosplenomegaly present RECTAL EXAM: Yes deferred Extremity: OTHER: Violaceous, purpuric eruption with subcutaneous edema, warm to touch. No fluctuance. No blisters. Well-circumscribed, macular, nonblanchable , Faint erythema and subcutaneous edema left upper groin. Rash is circumferential, but spares the plantar surface and distal foot. Neuro: COMMON NORMALS: patient oriented x3 Data : 07/16/20 12:32 07/16/20 12:32 Micro: Microbiology 07/16/20 12:30 Blood Culture - Preliminary Blood SPECIMEN COLLECTED 07/16/20 12:32 Blood Culture - Preliminary Blood SPECIMEN COLLECTED A&P Assessment and plan (1) Sepsis: Sepsis 2/2 Cellulitis /PNA Fever, leukocyosis, Follow Cultures Lactic acid Procalcitonin Levofloxacin 750 mg I.V Daily Status: Acute (2) Cellulitis: Status: Acute Qualifiers: Laterality: left Site of cellulitis: extremity Site of cellulitis of extremity: lower extremity Qualified Code(s): L03.116 - Cellulitis of left lower limb (3) Pneumonia: Status: Acute Qualifiers: Laterality: bilateral Lung location: lower lobe of lung Pneumonia type: due to unspecified organism Qualified Code(s): J18.9 - Pneumonia, unspecified organism (4) Diarrhea: Follow Stool Studies Status: Acute Qualifiers: Diarrhea type: unspecified type Qualified Code(s): R19.7 - Diarrhea, unspecified (5) HTN (hypertension): Status: Acute Attestations Medical Necessity Statement*: Patient needs to be in hospital for the management of sepsis 2/2 cellulitis.Anticipated LOS Greater then 2 midnights. Coding Level of Care Code Acute Cruise Coordinator for Chg Fwd Diagnoses Sepsis A41.9 Cellulitis L03.116 Laterality: left Site of cellulitis: extremity Site of cellulitis of extremity: lower extremity Pneumonia J18.9 Laterality: bilateral Lung location: lower lobe of lung Pneumonia type: due to unspecified organism Diarrhea R19.7 Diarrhea type: unspecified type HTN (hypertension) I10
[2020-07-16] MEDS: enoxaparin 40 mg/0.4 mL Syringe SUBCUT (18:35)
[2020-07-16] MEDS: levofloxacin-dextrose 5 % 750 MG/150 ML PREMIX 100 MG IV (18:36)
--- NOTE | 2020-07-16 19:02 | PC.NURSE ---
PATIENT REPORT RECEIVED FROM [facility] AND CARE TRANSFERRED TO [facility]
[2020-07-16] MEDS: niacin ER (24 hr) 500 mg Capsule 1000 MG PO (22:48)
[2020-07-16 23:40] LABS: Lactic Acid level (Lactate) 1.2 mmol/L (0.5-2.2)
[2020-07-17] VITALS (7 sets, daily range): BP systolic 104–133; BP diastolic 66–76; PULSE 73–113; RESP 16–24; TEMP 37.4–39.6; O2SAT 92–97
[2020-07-17] MEDS: acetaminophen 325 mg Tablet 650 MG PO ×2 (00:22→21:09)
[2020-07-17 05:39] LABS: Basophils % 0.2 %; Hematocrit 44.5 % (42.0-52.0); Hemoglobin 14.6 g/dL (11.7-16.6); Lymphocytes # 0.8 10^3/uL (0.8-4.8); Lymphocytes % 4.5 %; Mean Corpuscular HGB Conc 32.8 g/dL (30.0-36.0); Mean Corpuscular Hemoglobin 29.3 pg (28.0-34.0); Mean Corpuscular Volume 89.4 fL (80-94); Mean Platelet Volume 10.3 fL (7.4-10.4); Monocytes # 0.6 10^3/uL (0.2-0.9); Monocytes % 3.5 %; Neutrophils % 90.4 %; Nucleated Red Blood Cells % 0 %; Platelet Count 168 10^3/cmm (130-400); Red Blood Count 4.98 10^6/uL (4.1-5.3); Red Cell Distribution Width 15.1 % (12.1-15.1); White Blood Count 16.7 10^3/uL (4.0-10.0)
[2020-07-17 05:53] LABS: Lactic Sepsis W/Reflex 1.7 mmol/L (0.5-2.2)
[2020-07-17 05:59] LABS: Alanine Aminotransferase 41 U/L (0-41); Alkaline Phosphatase 50 IU/L (40-130); Anion Gap 14.7 (5-19); Aspartate Amino Transferase 27 U/L (0-40); Blood Urea Nitrogen 17 mg/dL (8-23); Calcium 8.4 mg/dL (8.5-10.5); Carbon Dioxide 24 mmol/L (22-29); Chloride 99 mmol/L (98-107); Glomerular Filtration Rate 74.3 mL/min (90-130); Glucose 112 mg/dL (65-115); Osmolality Calculated 280 mOsm/kg (285-295); Potassium 3.7 mmol/L (3.5-5.1); Sodium 134 mmol/L (136-145); Total Bilirubin 0.6 mg/dL (0.15-1.2)
[2020-07-17 06:05] LABS: Procalcitonin 6.78 ng/mL (0-0.5)
[2020-07-17] MEDS: lisinopril 10 mg Tablet PO (06:30)
[2020-07-17] MEDS: aspirin 325 mg Tablet PO (06:30)
[2020-07-17] MEDS: pantoprazole DR 40 mg Tablet PO (10:28)
[2020-07-17] MEDS: cholecalciferol (vitamin D3) 1,000 unit Tablet 1000 UNIT PO (10:28)
[2020-07-17] MEDS: FUROsemide 20 mg Tablet PO (10:29)
[2020-07-17] MEDS: piperacillin-tazobactam 3.375 GM in sodium chloride 0.9% (plus) 50 ML IV ×2 (11:00→18:00)
--- NOTE | 2020-07-17 13:12 | PC.CHAP ---
Pastoral Care Encounter/Spiritual Assessment Type of Contact [] Declined braid maker visit [] Patient/Family/Request visit [] Outpatient visit [] Follow-up visit [] Physician referral [] Code/Alert [] Routine visit [] Staff referral [] Actively dying [] Patient sleeping [] Family support [] [] Out of room [] Palliative care [] [xx] Receiving care in room [] Pre-surgical visit [] Trauma [] Long length of stay [] ICU visit [] Other: Relational/Emotional Strength [] Patient feels connected with others/family/visitors/staff [] Distress [] Loneliness/isolation [] Abandonment Spirituality of Patient [] Person of Desiree [] Attends Sikhism of their Desiree [] Believes in Prayer [] Reads Bible or Christian materials [] There are Spiritual issues to be addressed Waste Reclaimer Interventions [] Prayer [] Active listening [] Non-anxious presence [] Spiritual/emotional support [] Crisis/trauma care [] Spiritual counseling [] Bereavement support [] Provided bereavement packet [] Provided Bible/devotional materials [] Provided toy/stuffed animal, coloring book to patient or family member [] Provided Communion [] Anointing/Center [place] [] Salvation [] Completed spiritual assessment [] Other: Impact on Illness or Injury [] Angry [] Fearful [] Anxious [] Often cries [] Exhaustion [] Unable to work [] Unable to attend presybeterian [] Unable to walk/stand [] Unable to read [] Unable to drive [] Unable to eat/drink [] Unable to sleep [] Unable to be with family [] Patient intubated [] Other: Summary Follow up needed Time spent with patient
[2020-07-17] MEDS: vancomycin 1,250 MG/250 ML PIGGYBACK 200 MG IV (17:20)
[2020-07-17] MEDS: enoxaparin 40 mg/0.4 mL Syringe SUBCUT (18:00)
[2020-07-17] MEDS: niacin ER (24 hr) 500 mg Capsule 1000 MG PO (21:01)
--- NOTE | 2020-07-17 21:21 | PM.PN ---
Subjective Subjective: Interval history: was seen and examined this morning.He was seen eating lunch.When asked any complain, he denied any. Unfortunately he is continuing to spike temperature. T.Max : 103.2. But he has continued to maintain a good MAP as well as saturating well on R/A. WBC is trending down. Vitals/I&O/Wt Last Vital Signs Temp 101.2 F H 07/17/20 20:00 Pulse 99 07/17/20 20:00 Resp 24 H 07/17/20 20:00 BP 125/76 07/17/20 20:00 Pulse Ox 95 07/17/20 20:00 07/17/20 07/17/20 07/17/20 06:59 14:59 22:59 Intake Total 270 / 270 170 / 440 Output Total 675 / 675 Balance -405 / -405 170 / -235 Weight last 48 hrs Weight 104.326 kg Physical Exam Const: COMMON NORMALS: patient oriented x3 HENMT: COMMON NORMALS: normocephalic, atraumatic and external ears normal HEAD & SCALP: normocephalic and atraumatic EXTERNAL EAR: Yes external ears normal Resp: COMMON NORMALS: clear to auscultation bilaterally AUSCULTATION: clear to auscultation bilaterally Cardio: COMMON NORMALS: regular rate, regular rhythm, S1 normal heart sound present, S2 normal heart sound present, No gallops present (Cardio), No murmurs present (Cardio), No rub (Cardio) and Peripheral pulses 2+ throughout RATE: regular rate RHYTHM: regular rhythm HEART SOUNDS: S1 normal heart sound present and S2 normal heart sound present PERIPHERAL PULSES: Peripheral pulses 2+ throughout GI: COMMON NORMALS: Normal to inspection, nondistended, normoactive bowel sounds present, Soft to palpation, non-tender, No hepatosplenomegaly present and no masses AUSCULTATION: Yes normoactive bowel sounds PALPATION: Yes Soft to palpation and Yes No hepatosplenomegaly present RECTAL EXAM: Yes deferred Extremity: OTHER: Violaceous, purpuric eruption with subcutaneous edema, warm to touch. No fluctuance.No blisters.Well-circumscribed, macular, nonblanchable , Faint erythema and subcutaneous edema left upper groin. Rash is circumferential, but spares the plantar surface and distal foot. Neuro: COMMON NORMALS: patient oriented x3 Data : 07/17/20 05:11 07/17/20 05:11 Micro: Microbiology 07/16/20 12:30 Blood Culture - Preliminary Blood NEGATIVE TO DATE 07/16/20 12:32 Blood Culture - Preliminary Blood NEGATIVE TO DATE A&P Assessment and plan (1) Sepsis: Sepsis 2/2 Cellulitis /PNA Fever, leukocyosis, Blood Cultures: NTD Lactic acid: Procalcitonin : 6.78 Initially on Levofloxacin 750 mg I.V Daily Vancomycin ( 07/17---) Zosyn ( 07/17----) Status: Acute (2) Cellulitis: Status: Acute Qualifiers: Laterality: left Site of cellulitis: extremity Site of cellulitis of extremity: lower extremity Qualified Code(s): L03.116 - Cellulitis of left lower limb (3) Pneumonia: Status: Acute Qualifiers: Laterality: bilateral Lung location: lower lobe of lung Pneumonia type: due to unspecified organism Qualified Code(s): J18.9 - Pneumonia, unspecified organism (4) Diarrhea: Follow Stool Studies Status: Acute Qualifiers: Diarrhea type: unspecified type Qualified Code(s): R19.7 - Diarrhea, unspecified (5) HTN (hypertension): Status: Acute Attestations Medical Necessity Statement*: Patient needs to be in hospital for the management of Sepsis 2/2 Cellulitis/ PNA Coding Level of Care Code 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
[2020-07-18] VITALS: BP 109/68; PULSE 73; RESP 18; TEMP 36.7; O2SAT 97
[2020-07-18] MEDS: piperacillin-tazobactam 3.375 GM in sodium chloride 0.9% (plus) 50 ML IV ×3 (01:42→18:38)
[2020-07-18 04:00] VITALS: BP 137/74; PULSE 87; RESP 20; TEMP 37.1; O2SAT 97
[2020-07-18] MEDS: vancomycin 1,250 MG/250 ML PIGGYBACK 200 MG IV ×2 (05:08→18:37)
[2020-07-18] MEDS: aspirin 325 mg Tablet PO (05:10)
[2020-07-18] MEDS: lisinopril 10 mg Tablet PO (05:10)
[2020-07-18 06:56] LABS: Basophils % 0.3 %; Eosinophils # 0.1 10^3/uL (0.0-0.8); Eosinophils % 0.7 %; Hematocrit 43.7 % (42.0-52.0); Hemoglobin 14.3 g/dL (11.7-16.6); Lymphocytes # 1.3 10^3/uL (0.8-4.8); Lymphocytes % 11.3 %; Mean Corpuscular HGB Conc 32.7 g/dL (30.0-36.0); Mean Corpuscular Hemoglobin 29.5 pg (28.0-34.0); Mean Corpuscular Volume 90.3 fL (80-94); Mean Platelet Volume 11.1 fL (7.4-10.4); Monocytes # 0.5 10^3/uL (0.2-0.9); Monocytes % 3.8 %; Neutrophils # 9.88 10^3/uL (1.8-7.7); Neutrophils % 83.2 %; Nucleated Red Blood Cells % 0 %; Platelet Count 153 10^3/cmm (130-400); Red Blood Count 4.84 10^6/uL (4.1-5.3); Red Cell Distribution Width 15.3 % (12.1-15.1); White Blood Count 11.9 10^3/uL (4.0-10.0)
[2020-07-18 07:12] LABS: Alanine Aminotransferase 27 U/L (0-41); Albumin Level 2.8 g/dL (3.5-5.2); Alkaline Phosphatase 53 IU/L (40-130); Anion Gap 16.5 (5-19); Aspartate Amino Transferase 18 U/L (0-40); Blood Urea Nitrogen 16 mg/dL (8-23); Calcium 8.4 mg/dL (8.5-10.5); Carbon Dioxide 22 mmol/L (22-29); Chloride 100 mmol/L (98-107); Globulin 3.4 g/dL (1.3-4.6); Glomerular Filtration Rate 112.1 mL/min (90-130); Glucose 108 mg/dL (65-115); Osmolality Calculated 282 mOsm/kg (285-295); Potassium 3.5 mmol/L (3.5-5.1); Sodium 135 mmol/L (136-145); Total Bilirubin 0.6 mg/dL (0.15-1.2); Total Protein 6.2 g/dL (6.6-8.7)
[2020-07-18 07:41] VITALS: BP 104/65; PULSE 77; RESP 17; TEMP 36.8; O2SAT 95
[2020-07-18] MEDS: cholecalciferol (vitamin D3) 1,000 unit Tablet 1000 UNIT PO (09:49)
[2020-07-18] MEDS: pantoprazole DR 40 mg Tablet PO (09:49)
[2020-07-18] MEDS: FUROsemide 20 mg Tablet PO (09:49)
[2020-07-18 11:20] VITALS: BP 107/64; PULSE 81; RESP 18; TEMP 37.5; O2SAT 95
--- NOTE | 2020-07-18 12:39 | P.PN_ITS ---
Subjective Subjective: Interval history: was seen and examined this morning. L/E swelling and erythema has slightly improved. T.Max : 100.5. But he has continued to maintain a good MAP as well as saturating well on R/A. WBC is trending down. was at bedside. Vitals/I&O/Wt Last Vital Signs Temp 99.5 F 07/18/20 11:20 Pulse 81 07/18/20 11:20 Resp 18 07/18/20 11:20 BP 107/64 07/18/20 11:20 Pulse Ox 95 07/18/20 11:20 07/17/20 07/18/20 07/18/20 22:59 06:59 14:59 Intake Total 470 / 740 50 / 790 390 / 390 Output Total 650 / 1325 Balance 470 / 65 -600 / -535 390 / 390 Physical Exam Const: COMMON NORMALS: patient oriented x3 HENMT: COMMON NORMALS: normocephalic, atraumatic and external ears normal HEAD & SCALP: normocephalic and atraumatic EXTERNAL EAR: Yes external ears normal Resp: COMMON NORMALS: clear to auscultation bilaterally AUSCULTATION: clear to auscultation bilaterally Cardio: COMMON NORMALS: regular rate, regular rhythm, S1 normal heart sound present, S2 normal heart sound present, No gallops present (Cardio), No murmurs present (Cardio), No rub (Cardio) and Peripheral pulses 2+ throughout RATE: regular rate RHYTHM: regular rhythm HEART SOUNDS: S1 normal heart sound present and S2 normal heart sound present PERIPHERAL PULSES: Peripheral pulses 2+ throughout GI: COMMON NORMALS: Normal to inspection, nondistended, normoactive bowel sounds present, Soft to palpation, non-tender, No hepatosplenomegaly present and no masses AUSCULTATION: Yes normoactive bowel sounds PALPATION: Yes Soft to palpation and Yes No hepatosplenomegaly present RECTAL EXAM: Yes deferred Extremity: OTHER: Violaceous, purpuric eruption with subcutaneous edema, warm to touch. No fluctuance.No blisters.Well-circumscribed, macular, nonblanchable , Faint erythema and subcutaneous edema left upper groin. Rash is circumferential, but spares the plantar surface and distal foot. Neuro: COMMON NORMALS: patient oriented x3 Data : 07/18/20 06:01 07/18/20 06:01 Micro: Microbiology 03/18/21 12:30 Blood Culture - Preliminary Blood NEGATIVE TO DATE 07/16/20 12:32 Blood Culture - Preliminary Blood NEGATIVE TO DATE A&P Assessment and plan (1) Sepsis: Sepsis 2/2 lt l/e Cellulitis /Possible PNA Fever, leukocyosis, Blood Cultures: NTD Lactic acid: Procalcitonin : 6.78 Initially on Levofloxacin 750 mg I.V Daily Vancomycin ( 07/17---) Zosyn ( 07/17----) Status: Acute (2) Cellulitis: Status: Acute Qualifiers: Laterality: left Site of cellulitis: extremity Site of cellulitis of extremity: lower extremity Qualified Code(s): L03.116 - Cellulitis of left lower limb (3) Pneumonia: Status: Acute Qualifiers: Laterality: bilateral Lung location: lower lobe of lung Pneumonia type: due to unspecified organism Qualified Code(s): J18.9 - Pneumonia, unspeci fied organism (4) Diarrhea: Follow Stool Studies Status: Acute Qualifiers: Diarrhea type: unspecified type Qualified Code(s): R19.7 - Diarrhea, unspecified (5) HTN (hypertension): Status: Acute Attestations Medical Necessity Statement*: Patient needs to be hospital for management of sepsis secondary to cellulitis Coding Level of Care Code Acute 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
[2020-07-18 15:18] VITALS: BP 119/77; PULSE 79; RESP 16; TEMP 38.1; O2SAT 97
[2020-07-18] MEDS: enoxaparin 40 mg/0.4 mL Syringe SUBCUT (18:37)
[2020-07-18 19:07] VITALS: BP 115/70; PULSE 85; RESP 18; TEMP 36.7; O2SAT 94
[2020-07-18] MEDS: niacin ER (24 hr) 500 mg Capsule 1000 MG PO (21:37)
[2020-07-19] VITALS: BP 104/70; PULSE 70; RESP 18; TEMP 36.4; O2SAT 95
[2020-07-19] MEDS: piperacillin-tazobactam 3.375 GM in sodium chloride 0.9% (plus) 50 ML IV ×3 (02:17→20:21)
[2020-07-19 04:00] VITALS: BP 131/74; PULSE 82; RESP 18; TEMP 37.1; O2SAT 93
[2020-07-19] MEDS: aspirin 325 mg Tablet PO (05:28)
[2020-07-19] MEDS: lisinopril 10 mg Tablet PO (05:28)
[2020-07-19 05:42] LABS: Basophils % 0.3 %; Eosinophils # 0.2 10^3/uL (0.0-0.8); Eosinophils % 1.8 %; Hematocrit 41.3 % (42.0-52.0); Hemoglobin 13.6 g/dL (11.7-16.6); Lymphocytes % 10.9 %; Mean Corpuscular HGB Conc 32.9 g/dL (30.0-36.0); Mean Corpuscular Hemoglobin 29.1 pg (28.0-34.0); Mean Corpuscular Volume 88.2 fL (80-94); Mean Platelet Volume 10.2 fL (7.4-10.4); Monocytes # 0.9 10^3/uL (0.2-0.9); Monocytes % 9.6 %; Neutrophils # 6.95 10^3/uL (1.8-7.7); Neutrophils % 76.7 %; Nucleated Red Blood Cells % 0 %; Platelet Count 186 10^3/cmm (130-400); Red Blood Count 4.68 10^6/uL (4.1-5.3); Red Cell Distribution Width 15.3 % (12.1-15.1); White Blood Count 9.1 10^3/uL (4.0-10.0)
[2020-07-19 06:08] LABS: Alanine Aminotransferase 19 U/L (0-41); Albumin Level 2.6 g/dL (3.5-5.2); Alkaline Phosphatase 43 IU/L (40-130); Anion Gap 13.3 (5-19); Aspartate Amino Transferase 12 U/L (0-40); Blood Urea Nitrogen 15 mg/dL (8-23); Calcium 8.1 mg/dL (8.5-10.5); Carbon Dioxide 24 mmol/L (22-29); Chloride 102 mmol/L (98-107); Globulin 3.5 g/dL (1.3-4.6); Glomerular Filtration Rate 112.1 mL/min (90-130); Glucose 101 mg/dL (65-115); Osmolality Calculated 283 mOsm/kg (285-295); Potassium 3.3 mmol/L (3.5-5.1); Sodium 136 mmol/L (136-145); Total Bilirubin 0.5 mg/dL (0.15-1.2); Total Protein 6.1 g/dL (6.6-8.7); Vancomycin Trough 6.7 ug/mL (10-15)
[2020-07-19] MEDS: vancomycin 1,500 MG/300 ML PIGGYBACK 200 MG IV (07:14)
[2020-07-19 08:00] VITALS: BP 120/76; PULSE 85; RESP 18; TEMP 36.8; O2SAT 96
[2020-07-19] MEDS: pantoprazole DR 40 mg Tablet PO (09:01)
[2020-07-19] MEDS: FUROsemide 20 mg Tablet PO ×2 (09:01→12:02)
[2020-07-19] MEDS: cholecalciferol (vitamin D3) 1,000 unit Tablet 1000 UNIT PO (09:01)
--- NOTE | 2020-07-19 09:12 | P.PN_ITS ---
Subjective Subjective: Interval history: was seen and examined this morning. L/E swelling and erythema has improved. T.Max : 100.5. But he has continued to maintain a good MAP as well as saturating well on R/A. WBC has continued to trend down. 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: Reviewed: Yes Vitals/I&O/Wt Last Vital Signs Temp 98.3 F 07/19/20 08:00 Pulse 85 07/19/20 08:00 Resp 18 07/19/20 08:00 BP 120/76 07/19/20 08:00 Pulse Ox 96 07/19/20 08:00 07/18/20 07/19/20 07/19/20 22:59 06:59 14:59 Intake Total 470 / 980 590 / 590 Balance 470 / 280 590 / 590 Physical Exam Const: COMMON NORMALS: patient oriented x3 HENMT: COMMON NORMALS: normocephalic, atraumatic and external ears normal HEAD & SCALP: normocephalic and atraumatic EXTERNAL EAR: Yes external ears normal Resp: COMMON NORMALS: clear to auscultation bilaterally AUSCULTATION: clear to auscultation bilaterally Cardio: COMMON NORMALS: regular rate, regular rhythm, S1 normal heart sound present, S2 normal heart sound present, No gallops present (Cardio), No murmurs present (Cardio), No rub (Cardio) and Peripheral pulses 2+ throughout RATE: regular rate RHYTHM: regular rhythm HEART SOUNDS: S1 normal heart sound present and S2 normal heart sound present PERIPHERAL PULSES: Peripheral pulses 2+ throughout GI: COMMON NORMALS: Normal to inspection, nondistended, normoactive bowel sounds present, Soft to palpation, non-tender, No hepatosplenomegaly present and no masses AUSCULTATION: Yes normoactive bowel sounds PALPATION: Yes Soft to palpation and Yes No hepatosplenomegaly present RECTAL EXAM: Yes deferred Extremity: OTHER: Violaceous, purpuric eruption with subcutaneous edema, warm to touch. No fluctuance.No blisters.Well-circumscribed, macular, nonblanchable , Faint erythema and subcutaneous edema left upper groin. Rash is circumferential, but spares the plantar surface and distal foot. Neuro: COMMON NORMALS: patient oriented x3 Data : 07/19/20 05:35 03/21/21 05:35 A&P Assessment and plan (1) Sepsis: Sepsis 2/2 lt l/e Cellulitis Fever, leukocyosis, Blood Cultures: NTD Lactic acid: Procalcitonin : 6.78 Initially on Levofloxacin 750 mg I.V Daily Vancomycin ( 07/17---) Zosyn ( 07/17----) Status: Acute (2) Cellulitis: Underlying possible vasculitis should be ruled out Status: Acute Qualifiers: Laterality: left Site of cellulitis: extremity Site of cellulitis of extremity: lower extremity Qualified Code(s): L03.116 - Cellulitis of left lower limb (3) Pneumonia: Status: Acute Qualifiers: Laterality: bilateral Lung location: lower lobe of lung Pneumonia type: due to unspecified organism Qualified Code(s): J18.9 - Pneumonia, unspecified organism (4) Diarrhea: Follow Stool Studies Status: Acute Qualifiers: Diarrhea type: unspecified type Qualified Code(s): R19.7 - Diarrhea, unspecified (5) HTN (hypertension): Status: Acute Attestations Medical Necessity Statement*: Patient needs to be in hospital for the management of sepsis 2/2 to cellulitis. 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
--- NOTE | 2020-07-19 10:18 | PC.CHAP ---
Pastoral Care Encounter/Spiritual Assessment Type of Contact [] Declined swing tender visit [] Patient/Family/Request visit [] Outpatient visit [x] Follow-up visit [] Physician referral [] Code/Alert [] Routine visit [] Staff referral [] Actively dying [] Patient sleeping [] Family support [] [] Out of room [] Palliative care [] [] Receiving care in room [] Pre-surgical visit [] Trauma [] Long length of stay [] ICU visit [] Other: Relational/Emotional Strength [] Patient feels connected with others/family/visitors/staff [] Distress [] Loneliness/isolation [] Abandonment Spirituality of Patient [x] Person of Desiree [] Attends Christianity of their Desiree [x] Believes in Prayer [] Reads Bible or Episcopal materials [] There are Spiritual issues to be addressed Operating Room Specialist Interventions [x] Prayer [x] Active listening [x] Non-anxious presence [x] Spiritual/emotional support [] Crisis/trauma care [] Spiritual counseling [] Bereavement support [] Provided bereavement packet [] Provided Bible/devotional materials [] Provided toy/stuffed animal, coloring book to patient or family member [] Provided Communion [] Anointing/[place] [] Salvation [x] Completed spiritual assessment [] Other: Impact on Illness or Injury [] Angry [] Fearful [] Anxious [] Often cries [] Exhaustion [] Unable to work [] Unable to attend jain [] Unable to walk/stand [] Unable to read [] Unable to drive [] Unable to eat/drink [] Unable to sleep [] Unable to be with family [] Patient intubated [] Other: Summary Chaplains prayed with Patient. Time spent with patient 8 minutes.
[2020-07-19 10:40] VITALS: BP 121/73; PULSE 76; RESP 17; TEMP 36.5; O2SAT 95
--- NOTE | 2020-07-19 10:50 | PC.SOCIAL ---
*IMM UPDATE* Gave patient IMM update. Left copy of pg 2 in room. Initialed, dated, timed and placed in chart.
[2020-07-19 15:45] VITALS: BP 123/76; PULSE 72; RESP 18; TEMP 36.8; O2SAT 97
[2020-07-19] MEDS: vancomycin 1,500 MG/300 ML PIGGYBACK 150 MG IV ×2 (17:24→23:38)
[2020-07-19] MEDS: enoxaparin 40 mg/0.4 mL Syringe SUBCUT (17:25)
[2020-07-19 20:00] VITALS: BP 127/75; PULSE 81; RESP 20; TEMP 37.1; O2SAT 96
[2020-07-19] MEDS: potassium chloride ER 20 mEq Tablet PO (20:21)
[2020-07-19] MEDS: niacin ER (24 hr) 500 mg Capsule 1000 MG PO (20:21)
[2020-07-20] VITALS: BP 132/75; PULSE 75; RESP 18; TEMP 37.3; O2SAT 96
[2020-07-20] MEDS: piperacillin-tazobactam 3.375 GM in sodium chloride 0.9% (plus) 50 ML IV ×2 (03:30→12:02)
[2020-07-20 04:00] VITALS: BP 120/73; PULSE 72; RESP 18; TEMP 36.4; O2SAT 96
[2020-07-20] MEDS: lisinopril 10 mg Tablet PO (05:56)
[2020-07-20] MEDS: aspirin 325 mg Tablet PO (05:56)
[2020-07-20] MEDS: vancomycin 1,500 MG/300 ML PIGGYBACK 150 MG IV (06:00)
[2020-07-20 07:21] VITALS: BP 114/69; PULSE 81; RESP 18; TEMP 37.3; O2SAT 96
[2020-07-20 07:38] LABS: Basophils # 0.1 10^3/uL (0.0-0.1); Basophils % 0.6 %; Eosinophils # 0.4 10^3/uL (0.0-0.8); Eosinophils % 4.4 %; Hematocrit 41.3 % (42.0-52.0); Hemoglobin 13.8 g/dL (11.7-16.6); Lymphocytes % 11.7 %; Mean Corpuscular HGB Conc 33.4 g/dL (30.0-36.0); Mean Corpuscular Hemoglobin 29.4 pg (28.0-34.0); Mean Corpuscular Volume 88.1 fL (80-94); Mean Platelet Volume 10.4 fL (7.4-10.4); Monocytes # 0.9 10^3/uL (0.2-0.9); Monocytes % 10.1 %; Neutrophils # 6.11 10^3/uL (1.8-7.7); Neutrophils % 72.6 %; Nucleated Red Blood Cells % 0 %; Platelet Count 188 10^3/cmm (130-400); Red Blood Count 4.69 10^6/uL (4.1-5.3); Red Cell Distribution Width 15.2 % (12.1-15.1); White Blood Count 8.4 10^3/uL (4.0-10.0)
[2020-07-20 07:52] LABS: Anion Gap 13.2 (5-19); Blood Urea Nitrogen 12 mg/dL (8-23); Calcium 7.8 mg/dL (8.5-10.5); Carbon Dioxide 22 mmol/L (22-29); Chloride 103 mmol/L (98-107); Glomerular Filtration Rate 165.4 mL/min (90-130); Glucose 93 mg/dL (65-115); Osmolality Calculated 279 mOsm/kg (285-295); Potassium 3.2 mmol/L (3.5-5.1); Sodium 135 mmol/L (136-145)
[2020-07-20 08:08] LABS: Vancomycin Trough 21.6 ug/mL (10-15)
[2020-07-20] MEDS: pantoprazole DR 40 mg Tablet PO (08:57)
[2020-07-20] MEDS: cholecalciferol (vitamin D3) 1,000 unit Tablet 1000 UNIT PO (08:57)
[2020-07-20] MEDS: FUROsemide 40 mg Tablet PO (08:58)
[2020-07-20 11:11] VITALS: BP 122/72; PULSE 73; RESP 18; TEMP 37.4; O2SAT 96
[2020-07-20 15:10] VITALS: BP 123/69; PULSE 75; RESP 18; TEMP 36.9; O2SAT 96
--- NOTE | 2020-07-20 15:27 | PC.NURSE ---
pt verbalizes understanding of discharge instructions, home medications and follow up appointments. [employer] social science teacher contacted about setting up a ride for patient.
--- NOTE | 2020-07-20 15:45 | PM.DCS ---
Discharge Providers Date of Admission: 07/16/20 17:15 Date of Discharge: July 20, 2020 Attending Provider at Admission: Tk Starkey MD Attending Provider at Discharge: Bipin Hoffman Primary Care Provider: Christina Perez DO Diagnoses at Discharge Discharge Diagnosis (1) Sepsis: Status: Acute (2) Cellulitis: Status: Acute Qualifiers: Laterality: left Site of cellulitis: extremity Site of cellulitis of extremity: lower extremity Qualified Code(s): L03.116 - Cellulitis of left lower limb (3) Pneumonia: Status: Acute Qualifiers: Laterality: bilateral Lung location: lower lobe of lung Pneumonia type: due to unspecified organism Qualified Code(s): J18.9 - Pneumonia, unspecified organism (4) Diarrhea: Status: Acute Qualifiers: Diarrhea type: unspecified type Qualified Code(s): R19.7 - Diarrhea, unspecified (5) HTN (hypertension): Status: Acute Reason for Visit Reason for Visit: Inflammation/Redness In L. Leg Hospital Course Hospital Course See patient's H&P and progress notes for more details. The patient was admitted for left lower extremity recurrent cellulitis. Was started on broad-spectrum antibiotics. Currently the redness still persists but according to the patient with significant improvement. I would ideally prefer to keep the patient for another day to make sure that he continues improving. However he is adamant to go home. I will discharge him on Augmentin and doxycycline for elevated MRSA coverage. I instructed him to follow-up with his primary care physician who will continue managing his antibiotics. I asked the patient to come back to emergency room if he develops worsening redness swelling or tenderness in the extremity, diarrhea, nausea or vomiting, fever or chills or any other new symptoms. He verbalized understanding and agreement. Physical Exam Narrative: EXAM NARRATIVE: The patient is awake alert oriented. No acute distress. Mood and affect are appropriate. Skin is warm and dry. Moist extremities. Neck supple. No JVD Lungs clear Heart S1, S2, regular Abdomen soft, nontender, bowel sounds are present Extremities hyperemia and swelling is present in the left lower extremity below the knee. Normal range of motion's. No wounds. No peripheral cyanosis. Discharge Data Data Completed and Pending: Completed Studies During Hospitalization Category Date Time Status CT abdomen pelvis w con* [id number] Urge nt Cat Scan 07/16/20 14:23 Completed XR chest 1V kj ble [id number] Stat Exams 07/16/20 12:57 Completed Pending at discharge Category Date Time Status Basic Metabolic P mitesh AM LABS Lab 07/21/20 04:00 Ordered Blood Culture Sta t Lab 07/16/20 12:30 Results Complete Blood Co unt w/Auto AM LABS Lab 07/21/20 04:00 Ordered Complete Blood Co unt w/Auto AM LABS Lab 07/21/20 04:00 Ordered Magnesium AM LABS Lab 07/21/20 04:00 Ordered Procalcitonin AM LABS Lab 07/21/20 04:00 Ordered Renal Function Pa kaushik AM LABS Lab 07/21/20 04:00 Ordered Vancomycin Trough Timed Lab 07/20/20 22:00 Ordered Labs from last 24 hours 07/20/20 07/20/20 07/20/20 07:27 07:27 07:27 WBC 8.4 RBC 4.69 Hgb 13.8 Hct 41.3 L MCV 88.1 MCH 29.4 MCHC 33.4 RDW 15.2 H Plt Count 188 MPV 10.4 Neut % (Auto) 72.6 Lymph % (Auto) 11.7 Mower % (Auto) 10.1 Eos % (Auto) 4.4 Baso % (Auto) 0.6 Neut # (Auto) 6.11 Lymph # (Auto) 1.0 Mower # (Auto) 0.9 Eos # (Auto) 0.4 Baso # (Auto) 0.1 Nucleated RBC % (a uto) 0 Nucleated RBCs # 0.0 Sodium 135 L Potassium 3.2 L Chloride 103 Carbon Dioxide 22 Anion Gap 13.2 BUN 12 Creatinine 0.5 L GFR Calculation 165.4 H Glucose 93 Calculated Osmolal ity 279 L Calcium 7.8 L Vancomycin Trough 21.6 H Vitals: Last Vital Signs Temp 98.4 F 07/20/20 15:10 Pulse 75 07/20/20 15:10 Resp 18 07/20/20 15:10 BP 123/69 07/20/20 15:10 Pulse Ox 96 07/20/20 15:10 Discharge Plan Discharge Patient Disposition: Home Condition: Stable Prescriptions: New acetaminophen 325 mg Tablet 650 mg PO Q6H PRN (Reason: Mild/Mod Pain Or Temp >/= 101) Qty: 30 RF: 0 doxycycline monohydrate 100 mg Tablet 100 mg PO BID 10 Days Qty: 20 RF: 0 amoxicillin-pot clavulanate 875-125 mg Tablet 1 tab PO BID 10 Days Qty: 20 RF: 0 Continued aspirin 325 mg Tablet 325 mg PO QAM RF: 0 lisinopril 10 mg Tablet 10 mg PO QAM RF: 0 nitroglycerin [Nitrostat] 0.4 mg Tablet, Sublingual 0.4 mg SUBLINGUAL Q5M PRN (Reason: Chest Pain) RF: 0 furosemide [Lasix] 20 mg Tablet See Rx Instructions .ROUTE .COMPLEX RF: 0 diazepam 5 mg Tablet 5 mg PO Q12H PRN (Reason: Anxiety) RF: 0 cholecalciferol (vitamin D3) [Vitamin D3] 25 mcg (1,000 unit) Capsule 1,000 unit PO QAM RF: 0 niacin 500 mg tablet extended release 1,000 mg PO BEDTIME RF: 0 omeprazole 20 mg capsule,delayed release(DR/EC) 20 mg PO DAILY RF: 0 Discontinued acetaminophen [Tylenol Extra Strength] 500 mg Tablet 1,000 mg PO PRN RF: 0 Discharge Orders: Discharge Order (Routine); Ordered 07/20/20 Ordered By: Bipin Hoffman Other Ambulatory Orders: Complete Blood Count w/Auto (Routine) Timeframe: 1 Week Location: Determined by Patient Ordered By: Bipin Hoffman Comprehensive Metabolic Panel (Routine) Timeframe: 1 Week Facility: [facility] - Location: Lab - Main Lab Ordered By: Bipin Hoffman Referrals: Christina Perez DO [Primary Care Provider] - 07/24/20 10:05 am (APPOINTMENT WITH NICOLE MATUTE AT DR PEREZ OFFICE) Discharge Diet: Usual diet Discharge Activity: Increase activity as tolerated Patient Instructions: Doxycycline (By mouth), Amoxicillin/Clavulanate Potassium (By mouth), Cellulitis (DC) Activity Restrictions/Additional Instructions: Please come back to emergency room if you develop any worsening of the lower extremity redness, swelling, tenderness, fever or chills, nausea or vomiting, diarrhea, or any other new symptoms. Please follow-up with your primary care physician as soon as possible. Further adjustments to your medications might be necessary. Discharge Attestations Time Spent in Discharge Care*: greater than 30 min Quality Metrics Clinical Quality Measures During this hospital stay, did patient experience: None Coding Level of Care Code Acute Chg FW DC note Diagnoses Sepsis A41.9 Cellulitis L03.116 Laterality: left Site of cellulitis: extremity Site of cellulitis of extremity: lower extremity Pneumonia J18.9 Laterality: bilateral Lung location: lower lobe of lung Pneumonia type: due to unspecified organism Diarrhea R19.7 Diarrhea type: unspecified type HTN (hypertension) I10
[2020-07-20 16:03] VITALS: BP 123/69; PULSE 75; RESP 18; TEMP 36.9; O2SAT 96
== END 2020-07-20 16:04 | disposition home or self-care (01) | DRG 871 ==
LOC: ER 17:14 → MEDSURG 18:13
PROVIDERS: Admitting Provider Internal Medicine; Emergency Provider Family Medicine; PCP Family Medicine; Visit Provider Internal Medicine
DX: A41.9 Sepsis, unspecified organism (principal); J18.9 Pneumonia, unspecified organism; L03.116 Cellulitis of left lower limb; Z86.16 Personal history of COVID-19; I10 Essential (primary) hypertension; F41.9 Anxiety disorder, unspecified; G43.709 Chronic migraine without aura, not intractable, without status migrainosus; E78.5 Hyperlipidemia, unspecified; R19.7 Diarrhea, unspecified; Z79.82 Long term (current) use of aspirin
CPT/HCPCS: 36415; 71045; 74177; 80048; 80053; 80202; 81001; 83605; 84145; 85025; 85651; 86140; 87040; 96365; 96367; 96372; 99285; J1650; J1956; J2543; J3370; J7030; Q9967

== ENCOUNTER 2022-02-10 06:45 | Day surgery (SDC) | payer MEDICARE, MEDICAID, SELFPAY ==
[2022-02-07 12:46] VITALS: BMI 27.1
[2022-02-10 07:17] VITALS: BP 177/93; PULSE 66; RESP 16; TEMP 36.4; O2SAT 98
[2022-02-10] MEDS: sodium chloride 0.9% 1,000 ML 30 ML IV (07:24)
--- NOTE | 2022-02-10 07:29 | P.ANESASSM_ITS ---
Pre-Anesthetic Assessment Height/Weight: Height 1.83 m Weight 90.718 kg Temp Pulse Resp BP Pulse Ox O2 Del Method 97.5 F L 66 16 177/93 98 02/10/22 07:17 02/10/22 07:17 02/10/22 07:17 02/10/22 07:17 02/10/22 07:17 02/10/22 07:17 Preop Diagnosis: Screening colonoscopy Operation Date: 02/10/22 08:45 Proposed Procedures p Colonoscopy(Not Applicable) - Yannick Winchester MD Familial anesthetic complications: None Was Beta Pham taken within 24 hours: N/A Was Clonidine taken within 24 hours: N/A Last intake: Intake Black coffee at 0500 Last Liquid Date 02/10/22 Last Liquid Time 05:30 Last Solid Date 02/08/22 Last Solid Time 00:00 Social No alcohol and No tobacco Exam alert, oriented x 3, clear to auscultation bilaterally and regular rate & rhythm Airway Mallampati: Class III Dentition: false CV/HEM Hypertension GI Gastroesophageal Reflux Disease [facility] hx recurrent cellulitis Anesthetic Plan ASA status: 2 Anesthesia: MAC Risk of > 500 ml blood loss (7ml/kg in children): No Medications/Allergies Home Medications Medication Instructions Recorded Confirmed Last Taken Type aspirin 325 mg tablet 325 mg PO QAM 06/19/19 02/10/22 02/07/22 History cholecalciferol (vitamin D3) 25 1,000 unit PO QAM 06/19/19 02/10/22 02/09/22 History mcg (1,000 unit) capsule (Vitamin D3) diazepam 5 mg tablet 5 mg PO Q12H PRN Anxiety 06/19/19 02/10/22 02/09/22 History furosemide 20 mg tablet (Lasix) See Rx Instructions .Route .COMPLEX 06/19/19 02/10/22 02/09/22 History lisinopril 10 mg tablet 10 mg PO QAM 06/19/19 02/10/22 02/09/22 History nitroglycerin 0.4 mg sublingual 0.4 mg sublingual Q5M PRN Chest 06/19/19 02/10/22 Unknown History tablet (Nitrostat) Pain niacin 500 mg tablet,extended 1,000 mg PO BEDTIME 12/24/19 02/10/22 02/09/22 History release omeprazole 20 mg capsule,delayed 20 mg PO DAILY 07/16/20 02/10/22 02/09/22 History release acetaminophen 325 mg tablet 650 mg PO Q6H PRN Mild/Mod Pain Or 07/20/20 02/10/22 Unknown Rx Temp >/= 101 #30 tabs Allergies Allergy/AdvReac Type Severity Reaction Status Date / Time No Known Allergies Allergy Verified 02/07/22 12:50 Current Medications Generic Name Dose Route Start Last Admin Trade Name Caesarq PRN Reason Stop Dose Admin Sodium Chloride 1,000 mls @ 30 mls/hr 02/10/22 07:00 02/10/22 07:24 Sodium Chloride 0.9% IV 30 mls/hr .Q24H TIFFANIE Administration PFSH Anesthesia Medical History Anxiety Bleeding hemorrhoid Chronic migraine with aura Diarrhea Enterocolitis HTN (hypertension) Hyperlipidemia Pneumonia Surgical History History of appendectomy History of cholecystectomy History of tonsillectomy Family History Mother Cancer breast Father CAD (coronary artery disease) Cancer Prostate cancer Social History Smoking and tobacco status: never smoked Second hand smoke exposure: No Alcohol intake: never Lives independently: Yes Household members: spouse Marital status: Current occupational status: retired History of recent travel: No Current gender identity: Male Data Anesthesia Cardiac Studies: No Data to Display
--- NOTE | 2022-02-10 08:02 | W.PM.OPSFHP ---
Same Day Surgery H&P Indication for Procedure/HPI DATE OF PROCEDURE: February 10, 2022 CHIEF COMPLAINT/INDICATIONFOR SURGICAL PROCEDURE: Screening colonoscopy PREOP DIAGNOSIS: Screening colonoscopy PLANNED PROCEDURE: Operation Date: 02/10/22 08:45 Proposed Procedures p Colonoscopy(Not Applicable) - Yannick Winchester MD 09/15/2021 This is a pleasant 71 years old gentleman had a colonoscopy many years ago and reports as being normal.? Denies bleeding per rectum or colon cancer.? He is referred to my practice for screening colonoscopy.? Recently had abdominal pain back in June 2021 and it was unremarkable study guarding the abdomen and pelvis except for a small left inguinal hernia of fat. 02/10/2022 Patient comes today for screening colonoscopy ROS All systems have been reviewed negative except as for the above or per problem list. Medications/Allergies* Home Medications Medication Instructions Recorded Confirmed Type aspirin 325 mg tablet 325 mg PO QAM 06/19/19 02/10/22 History cholecalciferol (vitamin D3) 25 1,000 unit PO QAM 06/19/19 02/10/22 History mcg (1,000 unit) capsule (Vitamin D3) diazepam 5 mg tablet 5 mg PO Q12H PRN Anxiety 06/19/19 02/10/22 History furosemide 20 mg tablet (Lasix) See Rx Instructions .Route .COMPLEX 06/19/19 02/10/22 History lisinopril 10 mg tablet 10 mg PO QAM 06/19/19 02/10/22 History nitroglycerin 0.4 mg sublingual 0.4 mg sublingual Q5M PRN Chest 06/19/19 02/10/22 History tablet (Nitrostat) Pain niacin 500 mg tablet,extended 1,000 mg PO BEDTIME 12/24/19 02/10/22 History release omeprazole 20 mg capsule,delayed 20 mg PO DAILY 07/16/20 02/10/22 History release Allergies/Adverse Reactions Allergy/AdvReac Type Severity Reaction Status Date / Time No Known Allergies Allergy Verified 02/10/22 08:04 Current Medications: Generic Name Dose Route Start Last Admin Trade Name Freq PRN Reason Stop Dose Admin Sodium Chloride 1,000 mls @ 30 mls/hr 02/10/22 07:00 02/10/22 07:24 Sodium Chloride 0.9% IV 30 mls/hr .Q24H TIFFANIE Administration Pertinent History/Comorbid Conditions* Medical History (Updated 09/17/21 @ 07:51 by Yannick Winchester MD) Anxiety Bleeding hemorrhoid Chronic migraine with aura Diarrhea Enterocolitis HTN (hypertension) Hyperlipidemia Pneumonia Surgical History (Updated 06/19/19 @ 12:01 by Chrissy Mccormick DO) History of appendectomy History of cholecystectomy History of tonsillectomy Family History (Updated 06/19/19 @ 12:02 by Chrissy Mccormick DO) CAD (coronary artery disease) Father Cancer Mother breast Father Prostate cancer Social History Smoking and tobacco status: never smoked Second hand smoke exposure: No Alcohol intake: never Lives independently: Yes Household members: spouse Marital status: Current occupational status: retired History of recent travel: No Current gender identity: Male Pertinent Exam Findings alert, oriented x 3, regular rate & rhythm and procedure specific exam findings (Abdominal exam nontender nondistended soft) Recommendations Surgery/Procedure today (Colonoscopy with possible biopsy) Coding Level of Care Code Acute Caseworker Protective Services for Caio Zavaleta
[2022-02-10 09:31] VITALS: BP 130/78; PULSE 93; RESP 18; TEMP 36.2; O2SAT 95
[2022-02-10 09:35] VITALS: BP 130/78; PULSE 93; RESP 18; TEMP 36.2; O2SAT 95
[2022-02-10 09:36] VITALS: BP 137/81; PULSE 79; RESP 18; O2SAT 94
[2022-02-10 09:46] VITALS: BP 127/82; PULSE 65; RESP 18; O2SAT 95
--- NOTE | 2022-02-10 14:02 | ANE.PACU2 ---
Inpatient post-anesthesia follow up: Airway intact: Yes Vital signs: Temperature 97.2 F Pulse Rate 65 Respiratory Rate 18 Blood Pressure 127/82 Pulse Oximetry 95 Oxygen Delivery Me thod Room Air Oxygen Flow Rate 4 Fraction of Inspir ed Oxygen Hydration adequate: Yes Nausea and vomiting: No Pain level: 1 Mental status: Baseline
== END 2022-02-10 10:08 | disposition home or self-care (01) ==
PROVIDERS: PCP Family Medicine; Visit Provider Surgery
PROC: 0DJD8ZZ Inspection of Lower Intestinal Tract, Via Natural or Artificial Opening Endoscopic (ICD-10-PCS; CPT 45378; principal; 2022-02-10 08:45)
DX: Z12.11 Encounter for screening for malignant neoplasm of colon (principal); K57.30 Diverticulosis of large intestine without perforation or abscess without bleeding; Z79.82 Long term (current) use of aspirin; F41.9 Anxiety disorder, unspecified; I10 Essential (primary) hypertension; E78.5 Hyperlipidemia, unspecified; K21.9 Gastro-esophageal reflux disease without esophagitis
CPT/HCPCS: 45378; J2704; J7030

== ENCOUNTER → 2022-02-23 14:27 | Outpatient (BNVA) | payer MEDICARE, MEDICAID, SELFPAY | PROVIDERS: PCP Family Medicine; Visit Provider Surgery | DX: Z09 Encounter for follow-up examination after completed treatment for conditions other than malignant neoplasm (principal); K57.31 Diverticulosis of large intestine without perforation or abscess with bleeding | CPT/HCPCS: 99213 ==

== ENCOUNTER 2022-08-17 12:29 | Outpatient (CLI) | payer MEDICARE, MEDICAID, SELFPAY ==
--- NOTE | 2022-08-17 12:41 | ECG_ITS ---
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 Interpretive Statements NAME OF STUDY: TREADMILL STRESS TEST INDICATION: [SOB, ] EXERCISE DATA: The patient was exercised by Jose protocol. Baseline heart rate was 62 beats per minute. Baseline blood pressure was 143/86 millimeters of mercury. Target heart rate was 127 beats per minute. Maximum heart rate achieved was 128, which was 101% of the target heart rate. Maximum blood pressure was 206/106 millimeters of mercury. Total exercise time was 3 minutes. Maximum METs achieved was 4.6. The reason for ending the test was maximal effort achieved. ELECTROCARDIOGRAM: BASELINE: Showed sinus rhythm, normal axis, no significant ST-T changes at the baseline noted. [] EXERCISE: At the peak exercise level, [] No significant ST-T changes suggestive of ischemia noted. [] RECOVERY: During the recovery period, heart rate dropped appropriately. No significant ST-T changes in the recovery suggestive of ischemia noted. [] CONCLUSION: 1. Exercise capacity poor 2. Heart rate response was appropriate 3. Blood pressure response was appropriate 4. Symptoms not suggestive of ischemia. 5. Stress test shows no evidence of ischemia Electronically Signed On 09-05-2022 10:33:15 CDT by Jones Fajardo M.D. [id number]
[2022-08-17 12:45] VITALS: BMI 34.9
[2022-08-17 14:00] VITALS: BP 162/80; PULSE 65
== END 2022-08-17 12:30 | disposition home or self-care (01) ==
LOC: CDL 12:31
PROVIDERS: PCP Family Medicine; Visit Provider Family Medicine
DX: R07.9 Chest pain, unspecified (principal); R06.09 Other forms of dyspnea
CPT/HCPCS: 93017

== ENCOUNTER 2022-10-05 20:00 | Outpatient (CLI) | payer MEDICARE, MEDICAID, SELFPAY | END 2022-10-05 20:01 | disposition home or self-care (01) | LOC: SLEEP 10-06 05:03 | PROVIDERS: PCP Family Medicine; Visit Provider Family Medicine | DX: G47.33 Obstructive sleep apnea (adult) (pediatric) (principal); G47.36 Sleep related hypoventilation in conditions classified elsewhere; G47.10 Hypersomnia, unspecified | CPT/HCPCS: 95810 ==

== ENCOUNTER 2022-12-28 20:00 | Outpatient (CLI) | payer MEDICARE, MEDICAID, SELFPAY | END 2022-12-28 20:01 | disposition home or self-care (01) | LOC: SLEEP 12-29 05:28 | PROVIDERS: PCP Family Medicine; Visit Provider Family Medicine | DX: G47.33 Obstructive sleep apnea (adult) (pediatric) (principal) | CPT/HCPCS: 95811 ==

== ENCOUNTER 2024-03-29 10:49 | Outpatient (CLI) | payer MEDICARE, MEDICAID, SELFPAY ==
--- NOTE | 2024-03-29 10:54 | USCV_ITS ---
CuauhtemocFranko Age: 73 Gender: M : 1950 Exam Date: 03/29/2024 11:09 Ordering Phys: Christina Jackson DO Technologist: R Exam Location: [facility] [place]_ Indication: numbness of right side of face Risk Factors: Previous Vascular Surgery: Right Brachial BP: / Left Brachial BP: / Right Left Velocity (cm/s) Spectral Plaque Velocity (cm/s) Spectral Plaque Syst/Diast Broadening Syst/Diast Broadening 140.30/19.10 Prox CCA 131.90/ 36.50 123.90/29.00 Mid CCA 157.30/ 40.80 124.60/23.10 Distal CCA 137.80/ 36.50 66.60/ 24.80 Prox ICA 76.00 / 16.90 83.60/ 21.70 Mid ICA 58.50 / 21.50 67.70/ 21.80 Distal ICA 85.60 / 39.10 143.00 ECA 119.50 0.70 ICA/CCA 0.60 Antegrade Vertebral Antegrade 49.30/ 14.60 cm/s 51.30/ 12.60 cm/s Tri Subclavian Tri 113.9 111.8 0 0 FINDINGS Comparison: none available. Limited quality exam. No significant elevation of systolic or diastolic velocities. Waveforms are normal. Mixture of calcified and noncalcified plaque in the bifurcations. CONCLUSIONS Bilateral ICA stenosis less than 50%. Mild carotid atherosclerosis. Dr. Sue Higginbotham DO (Electronically Signed) Final Date: 29 March 2024 11:55 S
== END 2024-03-29 10:50 | disposition home or self-care (01) ==
LOC: RAD 10:49
PROVIDERS: PCP Family Medicine; Visit Provider Family Medicine
DX: Z86.73 Personal history of transient ischemic attack (TIA), and cerebral infarction without residual deficits (principal); R20.0 Anesthesia of skin; R29.898 Other symptoms and signs involving the musculoskeletal system
CPT/HCPCS: 93880

== ENCOUNTER 2024-10-09 13:26 | Emergency (ER) | payer MEDICARE, MEDICAID, SELFPAY ==
[2024-10-09 13:37] VITALS: BP 112/69; PULSE 90; RESP 20; TEMP 36.8; O2SAT 96
--- NOTE | 2024-10-09 14:09 | XR_ITS ---
WS: [id number] Portable AP upright chest, 10/09/2024 Clinical Data: dyspnea/cough Comparison: Portable chest, 07/16/2020 Findings: No nodules, masses or effusions are seen. The heart is normal. The pulmonary vascularity is not increased. No pneumonia or pneumothorax is seen. The diaphragms are flattened. The aortic arch and descending thoracic aorta show mild tortuosity. XR/XR chest 1V portable [id number] Impression: Atherosclerosis and hyperinflation.
--- NOTE | 2024-10-09 14:09 | ECG_ITS ---
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 Measurements Intervals [place] Rate: 84 P: 36 LA: 192 QRS: -5 QRSD: 96 T: 76 QT: 329 QTc: 390 Interpretive Statements SINUS RHYTHM WITH SINUS ARRHYTHMIA Compared to ECG 06/19/2019 09:28:42 No significant changes Electronically Signed On 10-09-2024 21:41:39 CDT by Alba Germain M.D. [id number]
[2024-10-09 14:39] VITALS: BP 108/75; PULSE 89; RESP 16; O2SAT 97
[2024-10-09 14:40] LABS: Basophils # 0.1 10^3/uL (0.0-0.1); Basophils % 0.9 %; Eosinophils # 0.2 10^3/uL (0.0-0.8); Eosinophils % 2.8 %; Hematocrit 50.1 % (37-53); Lymphocytes # 0.9 10^3/uL (0.8-4.8); Lymphocytes % 10.7 %; Mean Corpuscular HGB Conc 31.5 g/dL (30-55); Mean Corpuscular Hemoglobin 28.6 pg (27-33); Mean Corpuscular Volume 90.8 fl (82-101); Mean Platelet Volume 10.3 fL (7.4-10.4); Monocytes # 0.8 10^3/uL (0.2-0.9); Monocytes % 9.2 %; Neutrophils # 6.26 10^3/uL (1.8-7.7); Neutrophils % 76.2 %; Nucleated Red Blood Cells % 0 %; Platelet Count 229 10^3/cmm (157-399); Red Blood Count 5.52 10^6/uL (3.85-5.65); Red Cell Distribution Width 13.8 % (12.1-15.1); White Blood Count 8.22 10^3/uL (3.29-11.43)
[2024-10-09 15:02] LABS: Alanine Aminotransferase 10 U/L (0-41); Albumin Level 3.9 g/dL (3.5-5.2); Alkaline Phosphatase 61 U/L (40-130); Aspartate Amino Transferase 9 U/L (0-40); Blood Urea Nitrogen 15 mg/dL (8-23); Calcium 8.7 mg/dL (8.5-10.5); Carbon Dioxide 25 mmol/L (22-29); Chloride 105 mmol/L (98-107); Creatinine Clr Calc Pharmacy 73.7845; Globulin 2.8 g/dL (1.3-4.6); Glucose 115 mg/dL (65-115); NT Pro B Type Natriuretic Pept 38 pg/mL (0-125); Osmolality Calculated 294 mOsm/kg (285-295); Sodium 141 mmol/L (136-145); Total Bilirubin 0.3 mg/dL (0.15-1.2); Total Protein 6.7 g/dL (6.6-8.7)
[2024-10-09 15:10] VITALS: BP 110/77; PULSE 77; RESP 16; O2SAT 99
--- NOTE | 2024-10-09 15:15 | W.ED.SOB ---
HPI - SOB/Dyspnea General: Chief Complaint: Shortness of Breath/Dyspnea Stated Complaint: chest congestion, coughing Time Seen by Provider: 10/09/24 14:28 History of Present Illness: HPI Narrative: 74-year-old male presents with having a smoker's cough has been going on for about a week with some congestion. He reports he does not smoke. That he has a little bit of a chest pain with the cough. Denies fever or chills. Its mainly at night when it is worse. He gets some mild shortness of breath with exertion. Associated symptoms: Reports chest congestion; Deny abdominal pain, nausea or vomiting Related Data Home Medications ?Medication ?Instructions ?Recorded ?Confirmed aspirin 325 mg tablet 325 mg PO QAM 06/19/19 10/09/24 cholecalciferol (vitamin D3) 25 1,000 unit PO QAM 06/19/19 10/09/24 mcg (1,000 unit) capsule (Vitamin D3) diazepam 5 mg tablet 5 mg PO Q12H PRN Anxiety 06/19/19 10/09/24 furosemide 20 mg tablet (Lasix) 30 mg PO DAILY 06/19/19 10/09/24 lisinopril 10 mg tablet 10 mg PO QAM 06/19/19 10/09/24 nitroglycerin 0.4 mg sublingual 0.4 mg sublingual Q5M PRN Chest 06/19/19 10/09/24 tablet (Nitrostat) Pain niacin 500 mg tablet,extended 1,000 mg PO BEDTIME 12/24/19 10/09/24 release omeprazole 20 mg capsule,delayed 20 mg PO DAILY 07/16/20 10/09/24 release clopidogrel 75 mg tablet 75 mg PO DAILY 10/09/24 10/09/24 Previous Rx's ?Medication ?Instructions ?Recorded acetaminophen 325 mg tablet 650 mg (2 x 325 mg) PO Q6H PRN 07/20/20 Mild/Mod Pain Or Temp >/= 101 #30 tabs albuterol sulfate 90 mcg/actuation 1 inh inhalation Q6H PRN shortness 10/09/24 aerosol inhaler (Ventolin HFA) of breath or wheezing #8.5 grams azithromycin 250 mg tablet 250 mg PO DAILY 5 days #6 tabs 10/09/24 benzonatate 100 mg capsule 100 mg PO TID PRN cough #14 caps 10/09/24 Allergies Allergy/AdvReac Type Severity Reaction Status Date / Time No Known Allergies Allergy Verified 12/23/22 11:43 Review of Systems Card: Reports: dyspnea on exertion; Denies: irregular heart rhythm Resp: Reports: dyspnea, non-productive cough and chest congestion GI: Denies: abdominal pain, nausea or vomiting Neuro: Denies: headache(s) PFSH ED PFSH: Medical History Enterocolitis Pneumonia Diarrhea Chronic migraine with aura Bleeding hemorrhoid Hyperlipidemia Anxiety HTN (hypertension) Surgical History History of cholecystectomy History of appendectomy History of tonsillectomy Family History Mother Cancer breast Father CAD (coronary artery disease) Cancer Prostate cancer Social History Smoking and tobacco/nicotine status: never used tobacco/nicotine Second hand smoke exposure: No Alcohol intake: never Substance/Drug Use: never Lives independently: Yes Household members: spouse Marital status: Current occupational status: retired Current gender identity: Male Physical Exam Const: COMMON NORMALS: no acute distress, patient oriented x3 and alert Resp: COMMON NORMALS: normal respiratory effort, No retractions and No use of accessory muscles Cardio: COMMON NORMALS: regular rate and regular rhythm RATE: regular rate RHYTHM: regular rhythm GI: COMMON NORMALS: Soft to palpation and non-tender PALPATION: Yes Soft to palpation Neuro: COMMON NORMALS: patient oriented x3 SENSORIUM/ORIENTATION: Yes alert Psych: COMMON NORMALS: mental status grossly normal, cooperative and normal affect Skin: COMMON NORMALS: no rashes or lesions noted and turgor normal GENERAL SKIN EXAM: no rashes or lesions noted and turgor normal Course Vital Signs: Vital signs: Vital Signs Temperature 98.3 F 10/09/24 13:37 Pulse Rate 12 L 10/09/24 16:12 Respiratory Rate 16 10/09/24 16:12 Blood Pressure 110/77 10/09/24 15:10 Pulse Oximetry 97 10/09/24 16:12 Oxygen Delivery Me thod Room Air 10/09/24 16:12 MDM - SOB/Dyspnea Medical Decision Making Patient's diagnostics were reviewed and showed no acute findings. Patient did have improvement with a DuoNeb I suspect he has some underlying bronchitis. Patient will be prescribed azithromycin and albuterol as he improved with the breathing treatment. I also gave him some Tessalon Perles up with a cough to help him rest more comfortably at night. Patient's x-ray shows no acute findings. Patient was stable and discharged home. Lab Data 10/09/24 14:25 10/09/24 14:25 Labs/Radiology: Radiology Impressions Chest X-Ray 10/09/24 14:09 Impression: Atherosclerosis and hyperinflation. Laboratory Results WBC 8.22 10^3/uL (3.29-11.43) 10/09/24 14:25 RBC 5.52 10^6/uL (3.85-5.65) 10/09/24 14:25 Hgb 15.80 g/dL (11.27-16.99) 10/09/24 14:25 Hct 50.1 % (37-53) 10/09/24 14:25 MCV 90.8 fl (82-101) 10/09/24 14:25 MCH 28.6 pg (27-33) 10/09/24 14:25 MCHC 31.5 g/dL (30-55) 10/09/24 14:25 RDW 13.8 % (12.1-15.1) 10/09/24 14:25 Plt Count 229 10^3/cmm (157-399) 10/09/24 14:25 MPV 10.3 fL (7.4-10.4) 10/09/24 14:25 Neut % (Auto) 76.2 % 10/09/24 14:25 Lymph % (Auto) 10.7 % 10/09/24 14:25 [place] % (Auto) 9.2 % 10/09/24 14:25 Eos % (Auto) 2.8 % 10/09/24 14:25 Baso % (Auto) 0.9 % 10/09/24 14:25 Neut # (Auto) 6.26 10^3/uL (1.8-7.7) 10/09/24 14:25 Lymph # (Auto) 0.9 10^3/uL (0.8-4.8) 10/09/24 14:25 [place] # (Auto) 0.8 10^3/uL (0.2-0.9) 10/09/24 14:25 Eos # (Auto) 0.2 10^3/uL (0.0-0.8) 10/09/24 14:25 Baso # (Auto) 0.1 10^3/uL (0.0-0.1) 10/09/24 14:25 Nucleated RBC % (auto) 0 % 10/09/24 14:25 Nucleated RBCs # 0.0 /100WBC 10/09/24 14:25 Sodium 141 mmol/L (136-145) 10/09/24 14:25 Potassium 4.0 mmol/L (3.5-5.1) 10/09/24 14:25 Chloride 105 mmol/L (98-107) 10/09/24 14:25 Carbon Dioxide 25 mmol/L (22-29) 10/09/24 14:25 Anion Gap 15.0 (5-19) 10/09/24 14:25 BUN 15 mg/dL (8-23) 10/09/24 14:25 Creatinine 1.0 mg/dL (0.7-1.2) 10/09/24 14:25 GFR Calculation Not Reportable 10/09/24 14:25 Glucose 115 mg/dL (65-115) 10/09/24 14:25 Calculated Osmolality 294 mOsm/kg (285-295) 10/09/24 14:25 Calcium 8.7 mg/dL (8.5-10.5) 10/09/24 14:25 Total Bilirubin 0.3 mg/dL (0.15-1.2) 10/09/24 14:25 AST 9 U/L (0-40) 10/09/24 14:25 ALT 10 U/L (0-41) 10/09/24 14:25 Alkaline Phosphatase 61 U/L (40-130) 10/09/24 14:25 NT-Pro-B Natriuret Pep 38 pg/mL (0-125) 10/09/24 14:25 Total Protein 6.7 g/dL (6.6-8.7) 10/09/24 14:25 Albumin 3.9 g/dL (3.5-5.2) 10/09/24 14:25 Globulin 2.8 g/dL (1.3-4.6) 10/09/24 14:25 Influenza A (PCR) Negative (Negative) 10/09/24 15:06 Influenza Type B (PCR) Negative (Negative) 10/09/24 15:06 RSV (PCR) Negative (Negative) 10/09/24 15:06 SARS-CoV-2 (PCR) Negative (Negative) 10/09/24 15:06 All radiology interpretation(s) finalized by discharge Discharge Plan Discharge Patient Disposition: Home Clinical Impression: URI (upper respiratory infection) Qualifiers: URI type: unspecified URI Qualified Code(s): J06.9 - Acute upper respiratory infection, unspecified Condition: Stable Prescriptions: New azithromycin 250 mg tablet 250 mg PO DAILY 5 Days Qty: 6 0RF benzonatate 100 mg capsule 100 mg PO TID PRN (Reason: cough) Qty: 14 0RF albuterol sulfate [Ventolin HFA] 90 mcg/actuation HFA aerosol inhaler 1 inh inhalation Q6H PRN (Reason: shortness of breath or wheezing) Qty: 8.5 0RF Rx Instructions: 1 to 2 puffs every 4-6 hours while awake for the next 24 hours then as needed No Action aspirin 325 mg Tablet 325 mg PO QAM lisinopril 10 mg Tablet 10 mg PO QAM nitroglycerin [Nitrostat] 0.4 mg Tablet, Sublingual 0.4 mg SUBLINGUAL Q5M PRN (Reason: Chest Pain) furosemide [Lasix] 20 mg Tablet 30 mg PO DAILY diazepam 5 mg Tablet 5 mg PO Q12H PRN (Reason: Anxiety) cholecalciferol (vitamin D3) [Vitamin D3] 25 mcg (1,000 unit) Capsule 1,000 unit PO QAM niacin 500 mg tablet extended release 1,000 mg PO BEDTIME omeprazole 20 mg capsule,delayed release(DR/EC) 20 mg PO DAILY acetaminophen 325 mg Tablet 650 mg PO Q6H PRN (Reason: Mild/Mod Pain Or Temp >/= 101) Qty: 30 0RF clopidogrel 75 mg tablet 75 mg PO DAILY Discharge Orders: Discharge ED (Routine); Ordered 10/09/24 Ordered By: Frank Ortiz Referrals: Christina Jackson DO [Primary Care Provider, Family Practice] Discharge Diet: Usual diet Discharge Activity: Increase activity as tolerated Patient Instructions: Acute Bronchitis (ED), Opioid Safety, Pain Management, Upper Respiratory Infection - Adult Activity Restrictions/Additional Instructions: Please follow-up with your primary care provider early next week for recheck of your symptoms. Please use the prescribed inhaler every 4-6 hours for the first 24 hours then as needed. 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
[2024-10-09 15:51] LABS: Influenza A NEGATIVE (Negative); Influenza B NEGATIVE (Negative); Respiratory Syncytial Virus Ce NEGATIVE (Negative); SARS-CoV-2 PCR NEGATIVE (Negative)
[2024-10-09 16:12] VITALS: PULSE 12; RESP 16; O2SAT 97
[2024-10-09] MEDS: ipratropium-albuterol 3 mL Neb INHALATION (16:15)
[2024-10-09 17:02] VITALS: BP 128/68; PULSE 105; RESP 16; O2SAT 96
== END 2024-10-09 17:03 | disposition home or self-care (01) ==
PROVIDERS: Family Medicine; Emergency Provider Student in an Organized Health Care Education/Training Program; PCP Family Medicine
DX: J06.9 Acute upper respiratory infection, unspecified (principal); E78.5 Hyperlipidemia, unspecified; I10 Essential (primary) hypertension; Z79.899 Other long term (current) drug therapy; Z79.82 Long term (current) use of aspirin; Z79.02 Long term (current) use of antithrombotics/antiplatelets; Z11.52 Encounter for screening for COVID-19
CPT/HCPCS: 36415; 71045; 80053; 83880; 85025; 87637; 93005; 94640; 99285; J9999

== ENCOUNTER 2025-02-13 09:55 | Outpatient (CLI) | payer OTHER, MEDICAID, SELFPAY ==
--- NOTE | 2025-02-13 10:04 | USCV_ITS ---
CuauhtemocFranko hernandez Age: 74 Gender: M : 1950 Exam Date: 02/13/2025 10:28 Ordering Phys: Christina Jackson DO Technologist: VENECIA [place] [facility] [place]: SoB BP: 146 / 90 HR: 51 Rhythm: Sinus Technical Quality: Adequate MEASUREMENTS (Male / Female) Normal Values 2D ECHO LV Diastolic Diameter PLAX 5.2 cm 4.2 - 5.9 / 3.9 - 5.3 cm IVS Diastolic Thickness 1.2 cm 0.6 - 1.0 / 0.6 - 0.9 cm IVS Systolic Thickness 1.7 cm LVPW Diastolic Thickness 2.0 cm 0.6 - 1.0 / 0.6 - 0.9 cm LVPW Systolic Thickness 2.4 cm LVOT Diameter 2.1 cm LV Ejection Fraction 2D Teich 55.8 % LV Ejection Fraction MOD 4C 56.5 % LV Ejection Fraction MOD 2C 49.8 % LV Ejection Fraction 2C AL 51.9 % LA Diameter 4.8 cm RA Systolic Volume 4C AL 68.1 ml RA Systolic Volume 4C MOD 64.4 ml LA Sys Volume AL 74.3 cm cubed LA Sys Volume Index AL 33.9 cm cubed/m squared Aorta at Sinotubular Diameter 3.5 cm IVC Diameter 1.9 cm M-MODE LA Ao Ratio MM 1.3 AV Cusp Separation MM 2.0 cm DOPPLER AV Peak Velocity 128.0 cm/s LVOT Peak Velocity 114.0 cm/s AV Area Cont Eq vti 3.3 cm squared AV Area Cont Eq pk 3.0 cm squared MV Peak Velocity 85.0 cm/s MV Area PHT 2.2 cm squared Mitral E to A Ratio 0.7 TR Peak Velocity 98.0 cm/s TR Peak Gradient 3.8 mmHg TV Peak E Velocity 63.0 cm/s PV Peak Velocity 117.0 cm/s FINDINGS Left Ventricle Normal left ventricular size, systolic function and wall thickness, with no regional wall motion abnormalities. Left ventricular ejection fraction is estimated at 55 %. Grade I/IV diastolic dysfunction (abnormal relaxation filling pattern), normal to mildly elevated filling pressures. Right Ventricle Normal right ventricular size and systolic function. Right Atrium Normal right atrial size. Left Atrium Normal left atrial size. IA Septum Normal appearance of the interatrial septum. Mitral Valve Normal mitral valve structure. No mitral valve stenosis or regurgitation. Aortic Valve Moderate aortic valve calcification. No aortic valve stenosis. Trace aortic valve regurgitation. Tricuspid Valve Normal tricuspid valve structure. No tricuspid valve stenosis or regurgitation. Normal pulmonary pressure. Pulmonic Valve [id number]-axyicwip pulmonary valve regurgitation. Pericardium No pericardial effusion. Aorta Normal diameter of the aortic root and ascending thoracic aorta. IVC Normal IVC diameter. CONCLUSIONS Normal left ventricular size, systolic function and wall thickness, with no regional wall motion abnormalities. Left ventricular ejection fraction is estimated at 55 %. Grade I/IV diastolic dysfunction (abnormal relaxation filling pattern), normal to mildly elevated filling pressures. There is no pericardial effusion. Right atrial pressure is around 5 mm of mercury. Asha Ellsworth MD (Electronically Signed) Final Date: 23 February 2025 01:21 S
== END 2025-02-13 09:56 | disposition home or self-care (01) ==
LOC: RAD 09:57
PROVIDERS: PCP Family Medicine; Visit Provider Family Medicine
DX: R06.02 Shortness of breath (principal); I51.89 Other ill-defined heart diseases; I37.1 Nonrheumatic pulmonary valve insufficiency; I35.8 Other nonrheumatic aortic valve disorders
CPT/HCPCS: 93306